=== PATIENT | male | born 1955 | race Caucasian/White ===

== ENCOUNTER → 2016-10-26 | Day surgery (SDC) | payer OTHER ==
[2016-10-06 10:18] VITALS: Ht 177.8 cm; Wt 80.9 kg
[~2016-10-26] VITALS: Ht 177.8 cm; Wt 80.9 kg
[~2016-10-26] MED LIST: 500ML BSS 0.3ML EPI 1:1000PF IRRIG ONE; ACETAMINOPHEN 325 MG TAB PO PRN; AMVISC PLUS 0.8ML SYRINGE INT OCU ONE; BSS FLUSH ONE; EpINEphrine INJ 1MG/ML AMP 1 MG/ML AMP ONE; LACTATED RINGER'S 1000ML 500 ML IV SCH; LIDOCAINE 3.5% OPH GEL PER APPLICATION CHARGE ONE; LIDOCAINE HCL 1% MPF 2 ML VIAL ONE; MIDAZOLAM HCL 1 MG/ML 2ML VIAL ONE; OCUCOAT 1 ML SOLN IO ONE; PHENYLEPHRINE HCL 10% OP SOLN PER DROP CHARGE OPL SCH; POVIDONE-IODINE OP SOLN 30 ML BTL ONE; PROPARACAINE 0.5% OP SOLN PER DROP CHARGE OPL SCH; TOBRAMYCIN/DEXAMETHASONE OPH OINT PER APPLN CHARGE ONE
[2016-10-26] MEDS: PHENYLEPHRINE HCL 2.5% OP SOLN PER DROP CHARGE OPL SCH ×2 (07:22→07:28)
[2016-10-26] MEDS: TROPICAMIDE 1% OP SOLN PER DROP CHARGE OPL SCH ×2 (07:23→07:29)
[2016-10-26] MEDS: CYCLOPENTOLATE HCL 1% OP SOLN PER DROP CHARGE OPL SCH ×2 (07:24→07:30)
[2016-10-26] MEDS: KETOROLAC 0.5% OP SOLN PER DROP CHARGE OPL SCH ×2 (07:25→07:31)
--- NOTE | 2016-10-26 07:25 | History & Physical Bridge - SC ---
H&P Re-Evaluation Bridge Note: I have examined the patient, reviewed the History & Physical and in the interval since the performance of the History & Physical I have noted the following changes of clinical significance: No changes noted
[2016-10-26] MEDS: GATIFLOXACIN OP SOLN PER DROP CHARGE OPL SCH ×2 (07:26→07:36)
--- NOTE | 2016-10-26 08:06 | Discharge Instructions-SurgCtr ---
Discharge Instructions Date of Service October 26, 2016. Visit Reason for Visit: Cataract Left Eye Discharge Discharge Diagnosis / Problem: cataract Discharge Goals Goal(s): Improve function Activity Recommendations Activity Limitations: per Instructions/Follow-up section Anesthesia . Post Anesthesia Instructions: If you have had General Anesthesia or IV Sedation: * Do not drive today. * Resume driving when surgeon permits. * Do not make important decisions or sign legal documents today. * Call surgeon for: 1. Temperature elevations greater than 101 degrees F. 2. Uncontrollable pain. 3. Excessive bleeding. 4. Persistent nausea and vomiting. 5. Medication intolerance (nausea, vomiting or rash). * For nausea and vomiting use only clear liquids such as: tea, soda, bouillon until nausea subsides, then gradually increase diet as tolerated. * If you have any concerns or questions, call your surgeon's office. If physician is unavailable and it is an emergency, call 911 or go to the nearest emergency room. . Instructions / Follow-Up Instructions / Follow-Up ACTIVITY RECOMMENDATIONS: * No strenuous lifting, jogging or running for 4 days * No swimming or yard work for 1 week. * Limited bending is permitted, such as putting on shoes. RETURN TO SCHOOL/WORK: No work until seen by physician in office. MEDICATIONS: Resume previous medications unless instructed otherwise by your surgeon. This includes eye drops for glaucoma. Zymaxid/Gatifloxacin (ross cap) - one drop every 2 hours until bedtime Nevanac/Ilevro/Prolensa/Ketorolac (unger cap) - one drop every 4 hours until bedtime Prednisolone (white/pink cap, SHAKE WELL) - one drop every 2 hours until bedtime Starting tomorrow - all 3 drops every 4 hours until seen in the office Optive drops - as needed for discomfort SPECIAL CARE INSTRUCTIONS: * Wear eyeshield when sleeping, for four nights. * You may wear your own glasses or sunglasses while awake. * You may read or watch TV * You may shower and wash your face, but be gentle around the eye and pat dry. * Blurry vision and mild irritation are normal. * Call office if pain is more severe or vision becomes dark at . FOLLOW UP VISIT: Follow-up with Dr Nicole tomorrow. Diet Recommendations Home Diet: resume previous diet Procedures Procedures Performed: Left Cataract Phacoemulsification With Intraocular Lens Implant Pending Studies Studies pending at discharge: no Medical Emergencies . Who to Call and When: Medical Emergencies: If at any time you feel your situation is an emergency, please call 911 immediately. . 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 . "Provider Documentation" section prepared by Norman Nicole. .
[2016-10-26 08:07] VITALS: TEMP 36.2
--- NOTE | 2016-10-26 08:07 | [facility] Operative Report ---
Operative Report Date of Service October 26, 2016. Operative Report 1. PREOPERATIVE DIAGNOSIS: Cataract of the left eye. 2. POSTOPERATIVE DIAGNOSIS: Same. 3. PROCEDURE: Phacoemulsification with intraocular lens implantation of the left eye. SURGEON: Dr. Norman Nicole. ANESTHESIA: Topical Lidocaine gel, 1% Non- Preserved intracameral Lidocaine, and monitored intravenous sedation. INDICATIONS FOR THE PROCEDURE: The patient is a 61 - year-old male with a history of cataract of the left eye causing significant visual impairment. The details of the proposed procedure were explained to the patient who asked appropriate questions and following discussion of all risks, benefits and alternatives agreed to have the procedure done. 4. OPERATION AND FINDINGS: DESCRIPTION OF PROCEDURE: After informed consent was obtained, the patient was brought to the Operating Room at the [facility]. The patient was placed in a supine position and then the left eye was prepped and draped in the usual sterile fashion for intraocular surgery. A drop of topical Lidocaine gel was placed in the operative eye. A wire lid speculum was then placed in the fornices. A corneal paracentesis was then created temporally. The Non-Preserved Lidocaine was then instilled into the anterior chamber. The anterior chamber was then pressurized with viscoelastic. A 2.0 mm clear corneal incision was then created temporally. A cystotome was inserted into the anterior chamber and used to create a tear in the anterior lens capsule. This capsular tear was then used to create a small flap and the flap was dragged in a counterclockwise direction in order to create a continuous curvilinear capsulorrhexis. Hydrodissection was accomplished with balanced salt solution. Phacoemulsification of the lens nucleus was then performed in a standard [id number]-[id number] technique. The phaco time was 13 seconds with an average power of 7 %. The remaining cortical material was removed using irrigation aspiration. The capsular bag was then filled with viscoelastic. A [employer]ch [employer] Lomb MX60 +17.5 diopters lens was then loaded into the injector and injected into the capsular bag. The remaining viscoelastic was removed with the irrigation aspiration handpiece. The wound was hydrated and then checked and found to be watertight. The intraocular pressure was checked and found to be adequate. The wire lid speculum was removed and the patient's face was cleaned and dried. TobraDex ointment was placed in the inferior fornix. The patient was discharged to the Recovery Room having tolerated the procedure well. There were no complications. The patient will be seen tomorrow in the office for follow-up. I attest to the content of the Intraoperative Record and any orders documented therein. Any exceptions are noted below.
--- NOTE | 2016-10-26 08:17 | Anesthesia Progress Nt - [facility] ---
Anesthesia Post Op Note Date & Time October 26, 2016 at 08:17 Vital Signs Pain Intensity: 0 Vital Signs Past 12 Hours Date Time Temp Pulse Resp B/P Pulse Ox O2 Delivery O2 Flow Rate FiO2 10/26/16 08:07 36.2 56 16 120/77 99 Room Air 10/26/16 07:08 36.5 60 16 111/75 96 Room Air Notes Mental Status: alert / awake / arousable, participated in evaluation Pt Amnestic to Procedure: No (recall as expected) Nausea / Vomiting: adequately controlled Pain: adequately controlled Airway Patency, RR, SpO2: stable & adequate BP & HR: stable & adequate Hydration State: stable & adequate Anesthetic Complications: no major complications apparent Pt doing well.
[2016-10-26 08:36] VITALS: BP 112/68; PULSE 50; O2SAT 100
== END | disposition home or self-care (01) ==
LOC: X.SURG 06:47
PROVIDERS: ATTEND Ophthalmology
DX: H26.9 Unspecified cataract (principal); Z85.828 Personal history of other malignant neoplasm of skin

== ENCOUNTER → 2016-12-02 | Day surgery (SDC) | payer OTHER ==
[2016-11-17 14:56] VITALS: Ht 177.8 cm; Wt 80.9 kg
[2016-11-22 09:38] LABS: BASO % 0.5 %; BASO ABS # 0.02 K/uL (0-0.2); COMPLETE YES; EOS % 2.5 %; HEMATOCRIT 42.1 % (42-52); LYMPH % 24.3 %; LYMPH ABS # 1.06 K/uL (1.2-3.4); MEAN CELL VOLUME 93.8 fL (80-100); MEAN CORPUSCULAR HEMOGLOBIN 32.5 pg (25-34); MEAN CORPUSCULAR HGB CONC 34.7 g/dl (32-36); MEAN PLATELET VOLUME 11.1 fL (7.4-10.4); MONO % 10.1 %; NEUT % 62.6 %; PLATELET COUNT 142 K/uL (130-400); RED BLOOD COUNT 4.49 M/uL (4.7-6.1); WHITE BLOOD COUNT 4.37 K/uL (4.8-10.8)
[2016-11-22 10:27] LABS: BUN/CREATININE RATIO 17.8 (10-20); CALCIUM 8.9 mg/dl (8.5-10.1); CREATININE 0.98 mg/dl (0.60-1.40); POTASSIUM 4.8 mmol/L (3.5-5.1)
[~2016-12-02] VITALS: Ht 177.8 cm; Wt 80.9 kg
== END | disposition home or self-care (01) ==
LOC: EDSTATUS 08:15 → C.PAT 13:39
PROVIDERS: ATTEND Orthopaedic Surgery
DX: G56.01 Carpal tunnel syndrome, right upper limb (principal)

== ENCOUNTER → 2017-01-06 | Outpatient (CLI) | payer OTHER ==
[2017-01-06 12:14] LABS: HEMATOCRIT 42.6 % (42-52); MEAN CELL VOLUME 94.9 fL (80-100); MEAN CORPUSCULAR HEMOGLOBIN 32.5 pg (25-34); MEAN CORPUSCULAR HGB CONC 34.3 g/dl (32-36); MEAN PLATELET VOLUME 11.4 fL (7.4-10.4); PLATELET COUNT 156 K/uL (130-400); RED BLOOD COUNT 4.49 M/uL (4.7-6.1); WHITE BLOOD COUNT 4.45 K/uL (4.8-10.8)
[2017-01-06 12:47] LABS: ALT/SGPT 31 U/L (12-78); AST/SGOT 22 U/L (15-37); BLOOD UREA NITROGEN 16 mg/dl (7-18); CALCIUM 8.7 mg/dl (8.5-10.1); CARBON DIOXIDE 27 mmol/L (21-32); CHLORIDE 111 mmol/L (98-107); CHOLESTEROL 172 mg/dl (0-200); GLUCOSE 88 mg/dl (70-99); POTASSIUM 4.6 mmol/L (3.5-5.1); SODIUM 143 mmol/L (136-145); TRIGLYCERIDES 95 mg/dl (0-150); VERY LOW DENSITY LIPOPROT CALC 19 mg/dl
[2017-01-06 12:50] LABS: ALB/GLOB RATIO 1.2 (0.9-2); ALKALINE PHOSPHATASE 48 U/L (45-117); CHOLESTEROL/HDL RATIO 3.2; HDL CHOLESTEROL 54 mg/dl; LDL CHOLESTEROL CALCULATED 99 mg/dl
== END | disposition home or self-care (01) ==
LOC: C.LAB1850 11:26
PROVIDERS: ATTEND Nurse Practitioner Adult Health
DX: R17 Unspecified jaundice (principal); Z13.220 Encounter for screening for lipoid disorders

== ENCOUNTER → 2017-04-15 | Outpatient (CLI) | payer OTHER ==
--- NOTE | 2017-04-15 11:58 | DIAGNOSTIC IMAGING REPORT ---
R SHOULDER MIN 2 VIEWS ROUTINE HISTORY: 61 years-old Male M25.511 acute right shoulder pain with fall COMPARISON: Right shoulder radiographs 07/17/2014, CT chest 09/09/2012. TECHNIQUE: 3 views of the right shoulder FINDINGS: No acute fracture or dislocation. Mild acromioclavicular and mild to moderate glenohumeral osteoarthritis. No intra-articular loose body. Calcified hilar lymph nodes are compatible with prior granulomatous disease. IMPRESSION: 1. Degenerative changes of the right shoulder without acute fracture or dislocation. 2. Evidence of prior granulomatous disease. The above report was generated using voice recognition software. It may contain grammatical, syntax or spelling errors. Electronically signed by: Chance Sandhu M.D. 04/15/2017 11:57 AM Dictated Date/Time: 04/15/2017 11:56 AM
--- NOTE | 2017-04-15 12:00 | DIAGNOSTIC IMAGING REPORT ---
R KNEE 1 OR 2 VIEWS ROUTINE HISTORY: 61 years-old Male M25.561 acute right knee pain status post fall COMPARISON: None available TECHNIQUE: 2 views of the right knee FINDINGS: Mild tricompartmental osteoarthritis and small joint effusion. No acute fracture, dislocation or intra-articular loose body. Vascular calcifications are noted. There is mild soft tissue swelling about the knee. IMPRESSION: 1. Small joint effusion and mild soft tissue swelling without acute fracture or dislocation. 2. Mild tricompartmental osteoarthritis. The above report was generated using voice recognition software. It may contain grammatical, syntax or spelling errors. Electronically signed by: Chance Sandhu M.D. 04/15/2017 11:59 AM Dictated Date/Time: 04/15/2017 11:57 AM
[2017-04-15 13:43] LABS: ALT/SGPT 29 U/L (12-78); BLOOD UREA NITROGEN 19 mg/dl (7-18); BUN/CREATININE RATIO 20.5 (10-20); C-REACTIVE PROTEIN 0.39 mg/dl (0-0.29); CALCIUM 8.8 mg/dl (8.5-10.1); CARBON DIOXIDE 28 mmol/L (21-32); CHLORIDE 108 mmol/L (98-107); CREATININE 0.93 mg/dl (0.60-1.40); GLUCOSE 87 mg/dl (70-99); POTASSIUM 4.5 mmol/L (3.5-5.1); SODIUM 140 mmol/L (136-145); URIC ACID 6.3 mg/dl (2.6-7.2)
[2017-04-15 13:46] LABS: ALB/GLOB RATIO 1.1 (0.9-2); ALKALINE PHOSPHATASE 62 U/L (45-117); AST/SGOT 18 U/L (15-37)
[2017-04-15 14:10] LABS: LYME DISEASE AB IGG NEG (NEG)
[2017-04-15 14:14] LABS: LYME DISEASE AB IGM EQUIVOCAL (NEG)
[2017-04-21 08:41] LABS: 18KDIGG BAND NONREACTIVE (NONREACTIVE); 23KDIGG BAND NONREACTIVE (NONREACTIVE); 23KDIGM BAND REACTIVE (NONREACTIVE); 28KDIGG BAND NONREACTIVE (NONREACTIVE); 30KDIGG BAND NONREACTIVE (NONREACTIVE); 39KDIGG BAND NONREACTIVE (NONREACTIVE); 39KDIGM BAND NONREACTIVE (NONREACTIVE); 41KDIGG BAND NONREACTIVE (NONREACTIVE); 41KDIGM BAND REACTIVE (NONREACTIVE); 45KDIGG BAND NONREACTIVE (NONREACTIVE); 58KDIGG BAND NONREACTIVE (NONREACTIVE); 66KDIGG BAND NONREACTIVE (NONREACTIVE); 93KDIGG BAND NONREACTIVE (NONREACTIVE)
--- NOTE | 2017-04-22 12:03 | CODING QUERY MEDICAL NECESSITY ---
SUPPORTING DIAGNOSIS NEEDED A supporting diagnosis is required for the test/procedure performed on this patient in order for us to be reimbursed by the patient's insurance. Please provide a supporting diagnosis for the following test/procedure listed below next to the test name along with your signature. *If there is no additional diagnosis for this patient that would support the following test/procedure please document that below next to the test/procedure. Test(s)/Procedure(s) that require a supporting diagnosis: * VITAMIN D, 25-HYDROXY DIAGNOSIS: Provider Signature: Date: Thank you Lesley Christine [employer] Management Once completed, please kindly fax back to [phone] For questions please call [phone]
== END | disposition home or self-care (01) ==
LOC: C.RAD1850 11:27
PROVIDERS: ATTEND Nurse Practitioner Family
DX: M25.561 Pain in right knee (principal); M25.511 Pain in right shoulder

== ENCOUNTER 2017-11-07 13:58 | Inpatient (IN) | payer OTHER ==
[~2017-11-07] VITALS: Ht 177.8 cm; Wt 87.9 kg
[2017-11-07] MEDS ORDERED: THIAMINE HCL 100 MG/ML 2 ML VIAL IV STA (14:06)
[2017-11-07] MEDS: SODIUM CHLORIDE 0.9% 1000ML 1,000 ML IV SCH ×2 (14:06→19:43)
--- NOTE | 2017-11-07 14:15 | EMERGENCY ROOM VISIT NOTE ---
History Report prepared by Gricelda: Alex Rojas Under the Supervision of: Dr. Noah Tripp D.O. First contact with patient: 14:03 Chief Complaint: DIZZY Stated Complaint: DIZZY, CANT STAND UP History of Present Illness The patient is a 62 year old male who presents to the Emergency Room for sudden onset dizziness and disorientation that began 1 hour ago. 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 He then attempted to lift the customer's luggage and he felt unusually weak. He now describes his symptoms as "dizzy" and "disoriented." He denies any headache. The patient still feels "foggy" at this time, but denies any sensation of the room spinning. The patient does note take any medications daily, but adds that he has been being treated for Gout for the past 2 weeks. He adds that he drinks 4 beers per night, and had such last evening. He denies any chest pain or shortness of breath. Source of History: patient Onset: 1 hour ago Position: head Quality: other (Dizziness and disorientation) Timing: other (Suddne onset 1 hour ago) Associated Symptoms: + weakness, No headache, No chest pain, No SOB Review of Systems See HPI for pertinent positives & negatives. A total of 10 systems reviewed and were otherwise negative. Past Medical & Surgical Medical Problems: (1) Chronic alcohol abuse (2) Elevated bilirubin (3) Gout (4) Weakness Hx of Eye surgery. Family History Cancer Heart disease Hypertension Lung disease Social History Smoking Status: Never Smoker Alcohol Use: occasionally Housing Status: lives with family Current/Historical Medications Scheduled Ibuprofen (Advil), 800 MG PO PRN Scheduled PRN Fluorouracil (Topical) (Efudex), 1 APPLN TOP BID PRN for dermititis Allergies Coded Allergies: No Known Allergies (Unverified , 11/17/16) Physical Exam Vital Signs Date Time Temp Pulse Resp B/P (MAP) Pulse Ox O2 Delivery O2 Flow Rate FiO2 11/07/17 18:24 62 18 131/74 99 Room Air 11/07/17 17:36 63 21 137/81 97 Room Air 11/07/17 17:06 57 20 144/76 98 Room Air 11/07/17 16:36 63 22 156/80 96 Room Air 11/07/17 16:03 62 19 134/82 100 Room Air 11/07/17 15:30 72 15 143/74 98 Room Air 11/07/17 15:00 68 22 146/83 99 Room Air 11/07/17 14:43 62 16 137/82 99 Room Air 11/07/17 14:31 72 20 148/82 99 Room Air 11/07/17 14:09 74 11/07/17 14:07 Room Air 11/07/17 14:01 36.4 77 16 152/83 99 Room Air Physical Exam GENERAL: Patient is awake, alert, and in no acute distress. Patient is somewhat anxious appearing. EYES: The conjunctivae are clear. The pupils are round and reactive. EARS, NOSE, MOUTH AND THROAT: The nose is without any evidence of any deformity. Mucous membranes are moist tongue is midline NECK: The neck is nontender and supple. RESPIRATORY: Normal respiratory effort is noted there is no evidence of wheezing rhonchi or rales CARDIOVASCULAR: Regular rate and rhythm noted there no murmurs rubs or gallops normal S1 normal S2 GASTROINTESTINAL: The abdomen is soft. Bowel sounds are present in all quadrants. Abdomen is nontender MUSCULOSKELETAL/EXTREMITIES: There is no evidence of gross deformity full range of motion is noted in the hips and shoulders SKIN: There is no obvious evidence of any rash. There are no petechiae, pallor or cyanosis noted. NEUROLOGIC: Slight word finding noted, but otherwise is awake, alert, and oriented x 3. Strength was symmetric in both upper extremities. Able to hold each leg off of the bed for greater than 5 seconds. Patient has a slight facial droop involving the left corner of the mouth. This droop corrects on examination. Medical Decision & Procedures ER Provider Diagnostic Interpretation: Radiology results as stated below per my review and radiologist interpretation: CHEST ONE VIEW PORTABLE CLINICAL HISTORY: Stroke COMPARISON STUDY: Chest radiograph and chest CT September 09, 2012. FINDINGS: Incidental note is made of numerous calcified mediastinal and bilateral hilar lymph nodes. Cardiomediastinal silhouette is unremarkable. There are healed bilateral rib fractures. No pneumothorax or pleural effusion is noted. No consolidation or evidence for pulmonary edema. IMPRESSION: No acute cardiopulmonary findings. Electronically signed by: Ajith Roberts M.D. 11/07/2017 2:33 PM Dictated Date/Time: 11/07/2017 2:31 PM HEAD WITHOUT CONTRAST (CT) CLINICAL HISTORY: 62 years-old Male presenting with Stroke, dizziness, inability to stand. TECHNIQUE: Multidetector CT imaging of the head was performed without the use of intravenous contrast. IV contrast: None. A dose lowering technique was used consistent with the principles of ALARA (as low as reasonably achievable). COMPARISON: None. CT DOSE (mGy.cm): The estimated cumulative dose is 638.56 mGycm. FINDINGS: Manager Licensing topogram: Unremarkable. Ventricles and sulci normal in size. Brain parenchyma normal in appearance with preserved unger-white differentiation. No mass effect or midline shift. No hemorrhage or acute territorial infarct. No extra-axial fluid collection. Paranasal sinuses and mastoid air cells clear. Calvarium intact. IMPRESSION: 1. No acute intracranial abnormality. Electronically signed by: Alcides Corado M.D. 11/07/2017 2:16 PM Dictated Date/Time: 11/07/2017 2:14 PM Laboratory Results 11/07/17 14:20 Red Blood Count 4.33, Mean Corpuscular Volume 91.7, Mean Corpuscular Hemoglobin 31.9, Mean Corpuscular Hemoglobin Concent 34.8, Mean Platelet Volume 10.1, Neutrophils (%) (Auto) 64.0, Lymphocytes (%) (Auto) 24.8, Monocytes (%) (Auto) 9.4, Eosinophils (%) (Auto) 1.3, Basophils (%) (Auto) 0.3, Neutrophils # (Auto) 3.81, Lymphocytes # (Auto) 1.48, Monocytes # (Auto) 0.56, Eosinophils # (Auto) 0.08, Basophils # (Auto) 0.02 11/07/17 14:20 Test 11/07/17 14:20 11/07/17 14:27 11/07/17 14:28 11/07/17 16:15 White Blood Count 5.96 K/uL (4.8-10.8) Red Blood Count 4.33 M/uL (4.7-6.1) Hemoglobin 13.8 g/dL (14.0-18.0) Hematocrit 39.7 % (42-52) Mean Corpuscular Volume 91.7 fL (80-100) Mean Corpuscular Hemoglobin 31.9 pg (25-34) Mean Corpuscular Hemoglobin Concent 34.8 g/dl (32-36) Platelet Count 216 K/uL (130-400) Mean Platelet Volume 10.1 fL (7.4-10.4) Neutrophils (%) (Auto) 64.0 % Lymphocytes (%) (Auto) 24.8 % Monocytes (%) (Auto) 9.4 % Eosinophils (%) (Auto) 1.3 % Basophils (%) (Auto) 0.3 % Neutrophils # (Auto) 3.81 K/uL (1.4-6.5) Lymphocytes # (Auto) 1.48 K/uL (1.2-3.4) Monocytes # (Auto) 0.56 K/uL (0.11-0.59) Eosinophils # (Auto) 0.08 K/uL (0-0.5) Basophils # (Auto) 0.02 K/uL (0-0.2) RDW Standard Deviation 40.6 fL (36.4-46.3) RDW Coefficient of Variation 12.0 % (11.5-14.5) Immature Granulocyte % (Auto) 0.2 % Immature Granulocyte # (Auto) 0.01 K/uL (0.00-0.02) Prothrombin Time 10.0 SECONDS (9.0-12.0) Prothromb Time International Ratio 1.0 (0.9-1.1) Activated Partial Thromboplast Time 26.8 SECONDS (21.0-31.0) Partial Thromboplastin Ratio 1.0 Est Creatinine Clear Calc Drug Dose 80.8 ml/min Estimated GFR () 85.8 Estimated GFR (Non- 74.0 BUN/Creatinine Ratio 18.4 (10-20) Calcium Level 8.4 mg/dl (8.5-10.1) Magnesium Level 2.0 mg/dl (1.8-2.4) Total Bilirubin 0.2 mg/dl (0.2-1) Direct Bilirubin < 0.1 mg/dl (0-0.2) Aspartate Amino Transf (AST/SGOT) 17 U/L (15-37) Alanine Aminotransferase (ALT/SGPT) 31 U/L (12-78) Alkaline Phosphatase 70 U/L (45-117) Total Creatine Kinase 171 U/L (39-308) Creatine Kinase MB 2.7 ng/ml (0.5-3.6) Creatine Kinase MB Ratio 1.6 (0-3.0) Troponin I < 0.015 ng/ml (0-0.045) Total Protein 7.6 gm/dl (6.4-8.2) Albumin 3.5 gm/dl (3.4-5.0) Ethyl Alcohol mg/dL < 3.0 mg/dl (0-3) Bedside Hemoglobin 13.3 g/dl (14.0-18.0) Bedside Hematocrit 39 % (42-52) Bedside Sodium 144 mEq/L (135-144) Bedside Potassium 4.1 mEq/L (3.3-5.0) Bedside Chloride 105 mEq/L (101-112) Bedside Total CO2 26 mEq/l (24-31) Anion Gap 18.0 mmol/L (16-25) Bedside Blood Urea Nitrogen 22 mg/dl (7-18) Bedside Creatinine 1.1 mg/dl (0.6-1.3) Bedside Glucose (other) 96 mg/dl (70-99) Bedside Ionized Calcium (Emily) 1.16 mmol/l (1.12-1.32) Bedside Glucose 89 mg/dl (70-99) Urine Color YELLOW Urine Appearance CLEAR (CLEAR) Urine pH 5.5 (4.5-7.5) Urine Specific [place] 1.021 (1.000-1.030) Urine Protein NEG (NEG) Urine Glucose (UA) NEG (NEG) Urine Ketones NEG (NEG) Urine Occult Blood NEG (NEG) Urine Nitrite NEG (NEG) Urine Bilirubin NEG (NEG) Urine Urobilinogen NEG (NEG) Urine Leukocyte Esterase NEG (NEG) Urine Opiates Screen NEG (NEG) Urine Methadone, Qualitative NEG (NEG) Urine Barbiturates NEG (NEG) Urine Phencyclidine (PCP) Level NEG (NEG) Ur Amphetamine/Methamphetamine NEG (NEG) MDMA (Ecstasy) Screen NEG (NEG) Urine Benzodiazepines Screen NEG (NEG) Urine Cocaine Metabolite NEG (NEG) Urine Marijuana (THC) POS (NEG) Laboratory results per my review. Medications Administered Medications (Trade) Dose Ordered Sig/Francisco Route Start Time Stop Time Status Last Admin Dose Admin Sodium Chloride 1,000 ml @ 50 mls/hr Q20H IV 11/07/17 14:06 12/07/17 14:05 11/07/17 14:06 50 MLS/HR Thiamine HCl (Vitamin B-1 Inj) 100 mg NOW STAT IV 11/07/17 14:06 11/07/17 14:08 DC 11/07/17 15:05 100 MG Aspirin (Aspirin Chew) 324 mg NOW STAT PO 11/07/17 15:26 11/07/17 15:27 DC 11/07/17 15:37 324 MG Pantoprazole Sodium (Protonix Tab) 40 mg NOW STAT PO 11/07/17 15:26 11/07/17 15:27 DC 11/07/17 15:37 40 MG ECG Per My Interpretation Indication: altered mental status, weakness Rate (beats per minute): 66 Rhythm: normal sinus Findings: no ectopy, other (No acute ST-segment abnormality, ) Comparison ECG Date: 11/22/2016 Change: no significant change ED Course 1403: The patient was evaluated in room A1. A complete history and physical examination were performed. 1406: Ordered Thiamine HCl 100 mg IV, Sodium Chloride 1000 mL @ 50 mL/hr IV. 1515: I discussed the case with Dr. Canchola - Neurology. 1526: Ordered Pantoprazole 40 mg PO, Aspirin 324 mg PO. 1532: I discussed the patient with [facility] QING. She will evaluate the patient for further treatment. Medical Decision Differential diagnosis: Etiologies such as metabolic, infection, hypo/hyperglycemia, electrolyte abnormalities, cardiac sources, intracerebral event, toxicologic, neurologic, as well as others were entertained. Nursing notes reviewed. The patient is a 62-year-old male who presented to the emergency department through triage for evaluation of dizziness. The patient states that he was noticing that something was wrong while he was at work at approximately 1 PM. The patient states that he has never had similar symptoms in the past. When he was in triage the triage nurse notified me because she was concerned he may be having a stroke. The patient was having difficulty finding words and appeared to have a facial droop. The patient was placed in through A1. His NIH stroke score was 0-1 at that time. The patient continued to improve while he was in the emergency department but I consulted with the [place] stroke neurologist. He felt that the patient's symptoms could be waxing and waning. He felt this could represent a neurologic process which was in progress. For this reason I discussed the patient's condition with the on-call [facility]. They have agreed to evaluate the patient in the emergency department for further management and disposition. Medication Reconcilliation Current Medication List: was personally reviewed by me Blood Pressure Screening Patient's blood pressure: Elevated blood pressure Referred to hospitalist. Consults Time Called: 1527 Consulting Physician: Citlali Cruzist QING Returned Call: [phone] I discussed the patient with Citlali Jung PA-C. She will evaluate the patient for further treatment. Additional Consults: Time Called: 151 Consulted Physician: Dr. Sushant Mann Returned Call: [phone] Additional Comments: I discussed the case with Dr. Sushant Mann. Impression Primary Impression: Dizziness Additional Impressions: Dysarthria TIA (transient ischemic attack) Scribe Attestation The scribe's documentation has been prepared under my direction and personally reviewed by me in its entirety. I confirm that the note above accurately reflects all work, treatment, procedures, and medical decision making performed by me. Departure Information Dispostion Being Evaluated By Hospitalist Referrals Chapo Gaming III, CRNP (PCP) Patient Instructions My [facility] Problem Qualifiers Additional Impressions: TIA (transient ischemic attack) Transient cerebral ischemia type: unspecified Qualified Codes: G45.9 - Transient cerebral ischemic attack, unspecified
--- NOTE | 2017-11-07 14:34 | DIAGNOSTIC IMAGING REPORT ---
CHEST ONE VIEW PORTABLE CLINICAL HISTORY: Stroke COMPARISON STUDY: Chest radiograph and chest CT September 09, 2012. FINDINGS: Incidental note is made of numerous calcified mediastinal and bilateral hilar lymph nodes. Cardiomediastinal silhouette is unremarkable. There are healed bilateral rib fractures. No pneumothorax or pleural effusion is noted. No consolidation or evidence for pulmonary edema. IMPRESSION: No acute cardiopulmonary findings. Electronically signed by: Ajith Roberts M.D. 11/07/2017 2:33 PM Dictated Date/Time: 11/07/2017 2:31 PM
[2017-11-07 14:37] LABS: BASO % 0.3 %; BASO ABS # 0.02 K/uL (0-0.2); EOS % 1.3 %; EOS ABS # 0.08 K/uL (0-0.5); HEMATOCRIT 39.7 % (42-52); HEMOGLOBIN 13.8 g/dL (14.0-18.0); IG# 0.01 K/uL (0.00-0.02); LYMPH % 24.8 %; LYMPH ABS # 1.48 K/uL (1.2-3.4); MEAN CELL VOLUME 91.7 fL (80-100); MEAN CORPUSCULAR HEMOGLOBIN 31.9 pg (25-34); MEAN CORPUSCULAR HGB CONC 34.8 g/dl (32-36); MEAN PLATELET VOLUME 10.1 fL (7.4-10.4); MONO % 9.4 %; MONO ABS # 0.56 K/uL (0.11-0.59); NEUT ABS # 3.81 K/uL (1.4-6.5); PLATELET COUNT 216 K/uL (130-400); RED CELL DISTRIBUTION WIDTH SD 40.6 fL (36.4-46.3); WHITE BLOOD COUNT 5.96 K/uL (4.8-10.8)
[2017-11-07 14:41] LABS: ISTAT CREATININE 1.1 mg/dl (0.6-1.3); ISTAT IONIZED CALCIUM 1.16 mmol/l (1.12-1.32); ISTAT POTASSIUM 4.1 mEq/L (3.3-5.0)
[2017-11-07 14:45] LABS: PTT PATIENT 26.8 SECONDS (21.0-31.0)
[2017-11-07 15:02] LABS: BLOOD UREA NITROGEN 20 mg/dl (7-18); CALCIUM 8.4 mg/dl (8.5-10.1); CARBON DIOXIDE 25 mmol/L (21-32); CKMB 2.7 ng/ml (0.5-3.6); CREATININE 1.07 mg/dl (0.60-1.40); GLUCOSE 93 mg/dl (70-99); POTASSIUM 3.9 mmol/L (3.5-5.1); SODIUM 141 mmol/L (136-145)
[2017-11-07] MEDS ORDERED: PANTOprazole SOD 40 MG TAB PO STA (15:26)
[2017-11-07] MEDS ORDERED: ASPIRIN 81 MG CHEW PO STA (15:26)
[2017-11-07] MEDS ORDERED: OPTIRAY 320 IV PRN (15:30)
[2017-11-07] MEDS ORDERED: IBUP-1050 PO (15:44)
[2017-11-07] MEDS ORDERED: FLUO5CRE TOP (15:44)
--- NOTE | 2017-11-07 16:11 | DIAGNOSTIC IMAGING REPORT ---
HEAD ANGIO WITH CONTRAST HISTORY: 62 years-old Male presents with acute strokelike symptoms, dizziness and weakness COMPARISON: CTA neck of same day, CT head 11/07/2017 TECHNIQUE: CTA of the head is obtained following the intravenous administration of 119 mL Optiray 320 IV contrast. 3-D coronal and sagittal MIPS were obtained from the axial data set and were submitted for review. All measurements were obtained according to NASCET criteria. A dose lowering technique was used consistent with the principals of NICOLE. FINDINGS: The imaged bilateral internal carotid arteries are widely patent. There is minimal atherosclerotic plaquing noted involving the cavernous, clinoid and supraclinoid segments without significant stenosis. Bilateral ophthalmic branches appear normal. The middle and left anterior cerebral arteries appear patent and within normal limits. The right A1 segment is not well seen and is likely developmentally diminutive in size. The bilateral A2 segments appear to be unremarkable and patent. V4 segments of the vertebral arteries are patent and unremarkable. The basilar artery is within normal limits. origin of the right posterior cerebral artery. Bilateral posterior cerebral arteries appear to be widely patent. The cerebral venous sinuses are patent and unremarkable. Soft tissues and orbits are within normal limits. No skull fracture. Mastoid air cells are clear. Mild mucosal thickening of the maxillary sinuses with polypoid mucosal disease about the right maxillary sinus. IMPRESSION: 1. Right A1 segment is not visualized, likely developmentally diminutive in size with the left A1 segment and bilateral A2 segments widely patent. 2. Incidental note is made of origin of the right posterior cerebral artery. 3. No aneurysm or dissection identified. The above report was generated using voice recognition software. It may contain grammatical, syntax or spelling errors. Electronically signed by: Chance Sandhu M.D. 11/07/2017 4:10 PM Dictated Date/Time: 11/07/2017 4:04 PM
--- NOTE | 2017-11-07 16:14 | DIAGNOSTIC IMAGING REPORT ---
CT ANGIOGRAPHY OF THE NECK WITH CONTRAST CLINICAL HISTORY: Dizziness. Weakness. Stroke alert. COMPARISON STUDY: No previous studies for comparison. Technique: CT angiography of the carotid and vertebral arteries was obtained using [employer] 320 IV and 3D reconstruction on an independent workstation. NASCET criteria was utilized. A dose lowering technique was utilized adhering to the principles of ALARA. Findings: Please note that the CTA of the head will be reported separately. The left vertebral artery arises from the aortic arch. There is mild plaque at the origin of the right vertebral artery without significant stenosis. The bilateral vertebral arteries are patent. The right vertebral artery is dominant. There is mild plaque within the bilateral internal carotid arteries without significant stenosis. There is no dissection within the major vasculature of the neck. No cervical lymphadenopathy is noted. Incidental note is made of numerous calcified mediastinal lymph nodes. Lung apices are clear. No suspicious osseous lesions are present. No mucosal lesion is identified. IMPRESSION: No significant stenosis within the major vessels of the neck. No dissection. Electronically signed by: Ajith Roberts M.D. 11/07/2017 4:12 PM Dictated Date/Time: 11/07/2017 4:05 PM
[2017-11-07] MEDS ORDERED: POLYETHYLENE (MIRALAX) 17 GM PACK PO PRN (16:30)
[2017-11-07] MEDS ORDERED: ACETAMINOPHEN 325 MG TAB PO PRN (16:30)
[2017-11-07] MEDS ORDERED: MAGNESIUM HYDROXIDE SUSP 30 ML UDC PO PRN (16:30)
[2017-11-07] MEDS ORDERED: ONDANSETRON INJ 2 MG/ML 2 ML VIAL IV PRN (16:30)
[2017-11-07] MEDS ORDERED: PHARMACIST DISCHARGE MED REC CONSULT PRN (16:30)
[2017-11-07] MEDS ORDERED: LORAZEPAM 2 MG/ML 1 ML VIAL IV PRN (16:30)
--- NOTE | 2017-11-07 17:13 | History and Physical ---
History & Physical Date & Time of Service: November 07, 2017 at 16:15 Chief Complaint: Dizzy, Cant Stand Up Primary Care Physician: Chapo Gaming III, CRNP History of Present Illness Source: patient This is a 62 yo M with Hx of elevated bilirubin, chronic alcohol abuse, basal cell carcinoma, gout, who presents with weakness which began around 1 pm today. 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 Patient proceeded to drive 15 minutes with passengers, and notes worsening symptoms of dizziness. He denies any sort of visual deficits or changes, no motor weakness, no slurring speech. He continued to feel "not quite right" and then proceeded to come to the ER. The patient denies having any history of symptoms like this. He notes recently has been treating himself for a right great toe gout with 800 mg ibuprofen twice a day. He believes that his gout was exacerbated due to being on vacation recently and drinking 12 beers per day. Patient routinely drinks at least 4 beers daily as well as smokes marijuana several times per week. He denies taking any routine medications. He does follow with [facility] as an outpatient. Pt was called as a stroke upon presentation to the ER. CT head was negative. Labs are essentially unremarkable including initial troponin. Alcohol level negative. Past Medical/Surgical History Medical Problems: (1) Chronic alcohol abuse (2) Elevated bilirubin (3) Gout (4) Weakness Family History Cancer Heart disease Hypertension Lung disease Social History Smoking Status: Never Smoker Smokeless Tobacco Use: No Alcohol Use: heavy Drug Use: marijuana Marital Status: single Housing status: lives with family (brother) Occupational Status: employed Allergies Coded Allergies: No Known Allergies (Unverified , 11/17/16) Home Medications Scheduled Ibuprofen (Advil), 800 MG PO PRN Scheduled PRN Fluorouracil (Topical) (Efudex), 1 APPLN TOP BID PRN for dermititis Review of Systems Constitutional: No fever, sweats or chills Eyes: No diplopia, no worsening or blurred vision ENT: normal hearing, no trouble swallowing Respiratory: No cough, sputum, dyspnea at rest or on exertion Cardiovascular: No chest pain, tightness or palpitations Abdomen: No pain, nausea, vomiting, diarrhea or constipation Musculoskeletal: No joint pain, calf pain, swelling Neurologic: + dizziness, No weakness, numbness/tingling, or balance problems Psychiatric: No anxiety or depression Skin: No rash or itch Physical Exam Vital Signs Date Time Temp Pulse Resp B/P (MAP) Pulse Ox O2 Delivery O2 Flow Rate FiO2 11/07/17 16:03 62 19 134/82 100 Room Air 11/07/17 15:30 72 15 143/74 98 Room Air 11/07/17 15:00 68 22 146/83 99 Room Air 11/07/17 14:43 62 16 137/82 99 Room Air 11/07/17 14:31 72 20 148/82 99 Room Air 11/07/17 14:09 74 11/07/17 14:07 Room Air 11/07/17 14:01 36.4 77 16 152/83 99 Room Air General: awake, alert, no apparent distress Head: Normocephalic, atraumatic ENT: PERRL, EOMI, no pharyngeal exudate, mucous membranes moist Chest: Clear to auscultation, on room air, no adventitious breath sounds Cardiac: Regular rate and rhythm, no murmur, no JVD, normal peripheral pulses, good capillary refill Abdominal: NABS x 4 quadrants, soft, nontender to palpation, no rebound, guarding or tenderness Extremities: Normal inspection, no peripheral edema or erythema, calfs nontender to palpation. R great toe with mild erythema, mildly painful Psych: Normal mood and affect Neuro: AAO x 3, strength intact bilaterally and related 5/5, no motor deficits, speech is clear, no peripheral sensory deficits Diagnostics Laboratory Results Results Past 24 Hours Test 11/07/17 14:20 11/07/17 14:27 11/07/17 14:28 Range/Units White Blood Count 5.96 4.8-10.8 K/uL Red Blood Count 4.33 4.7-6.1 M/uL Hemoglobin 13.8 14.0-18.0 g/dL Hematocrit 39.7 42-52 % Mean Corpuscular Volume 91.7 80-100 fL Mean Corpuscular Hemoglobin 31.9 25-34 pg Mean Corpuscular Hemoglobin Concent 34.8 32-36 g/dl Platelet Count 216 130-400 K/uL Mean Platelet Volume 10.1 7.4-10.4 fL Neutrophils (%) (Auto) 64.0 % Lymphocytes (%) (Auto) 24.8 % Monocytes (%) (Auto) 9.4 % Eosinophils (%) (Auto) 1.3 % Basophils (%) (Auto) 0.3 % Neutrophils # (Auto) 3.81 1.4-6.5 K/uL Lymphocytes # (Auto) 1.48 1.2-3.4 K/uL Monocytes # (Auto) 0.56 0.11-0.59 K/uL Eosinophils # (Auto) 0.08 0-0.5 K/uL Basophils # (Auto) 0.02 0-0.2 K/uL RDW Standard Deviation 40.6 36.4-46.3 fL RDW Coefficient of Variation 12.0 11.5-14.5 % Immature Granulocyte % (Auto) 0.2 % Immature Granulocyte # (Auto) 0.01 0.00-0.02 K/uL Prothrombin Time 10.0 9.0-12.0 SECONDS Prothromb Time International Ratio 1.0 0.9-1.1 Activated Partial Thromboplast Time 26.8 21.0-31.0 SECONDS Partial Thromboplastin Ratio 1.0 Sodium Level 141 136-145 mmol/L Potassium Level 3.9 3.5-5.1 mmol/L Chloride Level 109 98-107 mmol/L Carbon Dioxide Level 25 21-32 mmol/L Anion Gap 7.0 18.0 16-25 mmol/L Blood Urea Nitrogen 20 7-18 mg/dl Creatinine 1.07 0.60-1.40 mg/dl Est Creatinine Clear Calc Drug Dose 80.8 ml/min Estimated GFR () 85.8 Estimated GFR (Non- 74.0 BUN/Creatinine Ratio 18.4 10-20 Random Glucose 93 70-99 mg/dl Calcium Level 8.4 8.5-10.1 mg/dl Magnesium Level 2.0 1.8-2.4 mg/dl Total Creatine Kinase 171 39-308 U/L Creatine Kinase MB 2.7 0.5-3.6 ng/ml Creatine Kinase MB Ratio 1.6 0-3.0 Troponin I < 0.015 0-0.045 ng/ml Ethyl Alcohol mg/dL < 3.0 0-3 mg/dl Bedside Hemoglobin 13.3 14.0-18.0 g/dl Bedside Hematocrit 39 42-52 % Bedside Sodium 144 135-144 mEq/L Bedside Potassium 4.1 3.3-5.0 mEq/L Bedside Chloride 105 101-112 mEq/L Bedside Total CO2 26 24-31 mEq/l Bedside Blood Urea Nitrogen 22 7-18 mg/dl Bedside Creatinine 1.1 0.6-1.3 mg/dl Bedside Glucose (other) 96 70-99 mg/dl Bedside Ionized Calcium (Emily) 1.16 1.12-1.32 mmol/l Bedside Glucose 89 70-99 mg/dl Diagnostic Radiology CHEST ONE VIEW PORTABLE CLINICAL HISTORY: Stroke COMPARISON STUDY: Chest radiograph and chest CT September 09, 2012. FINDINGS: Incidental note is made of numerous calcified mediastinal and bilateral hilar lymph nodes. Cardiomediastinal silhouette is unremarkable. There are healed bilateral rib fractures. No pneumothorax or pleural effusion is noted. No consolidation or evidence for pulmonary edema. IMPRESSION: No acute cardiopulmonary findings. Electronically signed by: Ajith Roberts M.D. 11/07/2017 2:33 PM Dictated Date/Time: 11/07/2017 2:31 PM The status of this report is Signed. HEAD WITHOUT CONTRAST (CT) CLINICAL HISTORY: 62 years-old Male presenting with Stroke, dizziness, inability to stand. TECHNIQUE: Multidetector CT imaging of the head was performed without the use of intravenous contrast. IV contrast: None. A dose lowering technique was used consistent with the principles of ALARA (as low as reasonably achievable). COMPARISON: None. CT DOSE (mGy.cm): The estimated cumulative dose is 638.56 mGycm. FINDINGS: Hris Analyst topogram: Unremarkable. Ventricles and sulci normal in size. Brain parenchyma normal in appearance with preserved unger-white differentiation. No mass effect or midline shift. No hemorrhage or acute territorial infarct. No extra-axial fluid collection. Paranasal sinuses and mastoid air cells clear. Calvarium intact. IMPRESSION: 1. No acute intracranial abnormality. Electronically signed by: Alcides Corado M.D. 11/07/2017 2:16 PM Dictated Date/Time: 11/07/2017 2:14 PM The status of this report is Signed. EKG Normal sinus rhythm Normal ECG When compared with ECG of 22-NOV-2016 08:52, No significant change was found Vent. rate 66 BPM AL interval 148 ms QRS duration 78 ms QT/QTc 420/440 ms P-R-T axes 37 -22 25 Impression Assessment and Plan This is a 62 yo M with Hx of elevated bilirubin, chronic alcohol abuse, basal cell carcinoma, gout, who presents with weakness which began around 1 pm today. 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 Patient proceeded to drive 15 minutes with passengers, and notes worsening symptoms of dizziness. Possible TIA/ Stroke R/o - Admit to tele - neuro consulted, stroke protocol - Dr. Lyles, pt is out of the window for TPA. - CT imaging negative for possible acute infarct. CTA head/neck in process. - Low threshold for MRI if sx worsen, change. - Neuro checks - Check Echo for possible underlying etiology of dizziness- trend troponins, initial was unremarkable - Follow lipid panel, a1c with am labs - BP acceptable currently, can have permissive hypertension for now - Pt does not take any home medications : Start baby asa daily, statin pending lipid panel - Labs are essentially wnl Chronic Alcohol Abuse - Check thiamine, folic acid levels with am labs - will start on supplementation - Ativan prn for withdrawal if necessary, last drink was yesterday - Cessation encouraged especially in the setting of gout flare - INR = 1.0 - etoh negative Marijuana Use - Admits to last use being 2 days ago. Will check tox screen for other drug use. Gout - Check uric acid level - has been using 800 mg ibuprofen BID at home x 1 week. Hold for now as pt reports sx are essentially resolved. - Pt was counselled that high dose nsaids increase risk of GI bleed with his heavy alcohol consumption. Hx elevated bilirubin - Follow LFTs with am labs, PCP has been following DVT ppx: Teds, scds, no chemical ppx at this time CODE: FULL CODE Dispo: From home, lives with brother, PT/OT to eval. Resuscitation Status VTE Prophylaxis Will order VTE Prophylaxis: Yes History Patient seen and examined, chart reviewed, case discussed with TUAN Lara and I agree with her assessment and plan as documented above. 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 Patient denies CP/ Palpitations/syncope. Denies numbness/tingling or weakness. On physical exam he is afebrile, hemodynamically stable. General: NAD, resting comfortably. Skin: warm, dry, intact, no rashes or lesions. HEENT: Unremarkable. Heart +S1/S2, regular, no m/r/g/ectopy, Lungs CTA, no rales/ rhonchi or wheezes. Abdomen benign. Extremities without edema. Neurologically intact. Labs and images reviewed. Patient with mild normochromic/normocytic anemia, elevated BUN. Assessment: 62yo male with dizziness/lightheadedness. No neurologic deficit. Plan: Telemetry to monitor for arrhythmia, monitor labs and VS. TIA workup with Neuro consult. Low threshold for MRI. Remainder of plan as above.
[2017-11-07] MEDS ORDERED: LORAZEPAM INJ 0.5 MG in SYRINGE 0.75 ML IV PRN (17:15)
[2017-11-07 17:43] LABS: ALBUMIN 3.5 gm/dl (3.4-5.0); ALKALINE PHOSPHATASE 70 U/L (45-117); ALT/SGPT 31 U/L (12-78); AST/SGOT 17 U/L (15-37); TOTAL PROTEIN 7.6 gm/dl (6.4-8.2)
[2017-11-07 19:18] VITALS: O2SAT 99; Ht 177.8 cm; Wt 87.9 kg
[2017-11-07 19:54] VITALS: BP 130/78; PULSE 58; TEMP 36.7; O2SAT 97
[2017-11-07 21:15] VITALS: O2SAT 94
[2017-11-07 23:35] VITALS: BP 123/69; PULSE 51; TEMP 36.4; O2SAT 96
[2017-11-08] VITALS (10 sets, daily range): BP systolic 113–136; BP diastolic 70–82; PULSE 55–64; TEMP 36.6–36.8; O2SAT 94–96
[2017-11-08 05:45] LABS: HEMOGLOBIN A1C 5.4 % (4.5-5.6)
[2017-11-08 06:29] LABS: BASO % 0.4 %; BASO ABS # 0.02 K/uL (0-0.2); EOS % 1.5 %; EOS ABS # 0.07 K/uL (0-0.5); HEMATOCRIT 37.1 % (42-52); HEMOGLOBIN 12.9 g/dL (14.0-18.0); IG# 0.01 K/uL (0.00-0.02); LYMPH % 20.3 %; LYMPH ABS # 0.97 K/uL (1.2-3.4); MEAN CELL VOLUME 91.4 fL (80-100); MEAN CORPUSCULAR HEMOGLOBIN 31.8 pg (25-34); MEAN CORPUSCULAR HGB CONC 34.8 g/dl (32-36); MONO % 7.7 %; MONO ABS # 0.37 K/uL (0.11-0.59); NEUT % 69.9 %; NEUT ABS # 3.35 K/uL (1.4-6.5); PLATELET COUNT 185 K/uL (130-400); RED CELL DISTRIBUTION WIDTH SD 40.2 fL (36.4-46.3); WHITE BLOOD COUNT 4.79 K/uL (4.8-10.8)
[2017-11-08 07:09] LABS: BLOOD UREA NITROGEN 17 mg/dl (7-18); CALCIUM 8.1 mg/dl (8.5-10.1); CARBON DIOXIDE 26 mmol/L (21-32); CHOLESTEROL 130 mg/dl (0-200); CREATININE 0.95 mg/dl (0.60-1.40); GLUCOSE 84 mg/dl (70-99); LDL CHOLESTEROL CALCULATED 73 mg/dl; POTASSIUM 4.1 mmol/L (3.5-5.1); SODIUM 141 mmol/L (136-145); URIC ACID 6.3 mg/dl (2.6-7.2)
[2017-11-08] MEDS: SODIUM CHLORIDE 0.9% 1000ML 1,000 ML IV SCH ×3 (08:00→20:56)
[2017-11-08] MEDS: CEROVITE ADV FORMULA TAB PO SCH (08:02)
[2017-11-08] MEDS: THIAMINE HCL 100 MG TAB PO SCH (08:02)
[2017-11-08] MEDS: FoLIC ACID TAB 400 MCG TAB PO SCH (08:02)
[2017-11-08] MEDS ORDERED: ASPIRIN 81 MG ECTAB PO SCH ×2 (09:00)
--- NOTE | 2017-11-08 09:37 | Neurology Consultation ---
Neurology Consultation Date of Consultation: November 08, 2017. Attending Physician: Amy Cooper D.O. Primary Care Physician: Chapo Gaming III, CRNP Reason for Consultation: Patient is a 62-year-old, who was asked to see the request of Dr. Cooper, for neurologic consultation regarding acute onset dizziness, question stroke History of Present Illness Source: patient, caregiver, hospital records This patient has no history of heart disease, hypertension, diabetes, asthma, ulcer, or previous stroke. He does have a longstanding history of gout and intermittently takes ibuprofen which helps. That is his only medication. 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 He got out of his car to help a customer put luggage in and drove her to the airport. When he got out of the car to help he noted balance issues and more woozy dizzy feelings. He was not lightheaded like he was going to fade and he did have a true vertigo. He had no specific weakness or numbness but felt weak all over. He had no speech or mentation problems but he did feels if he was a little foggy at times. After Re drop the customer off at the airport, he felt dizzy enough that he took himself to the emergency room. The patient had no nausea or vomiting. He arrived November 07 at 1401 hours, with a temperature 36.4, pulse 77 regular, respiratory rate 16, blood pressure 1 to 2/83, and O2 saturation 99%. He was described as being a little bit anxious and had some slight word-finding problems and a slight left facial droop. Chest x-ray was unremarkable CT scan of the head was unremarkable CT angiography of the neck was unremarkable CT angiography of the head showed a nonvisualized right A1 segment. In addition there was a origin to the right posterior cerebral artery. There were no significant stenoses or aneurysms. Laboratory studies revealed mild anemia on CBC. Hemoglobin A1c was 5.4, fasting cholesterol was 130 and fasting triglycerides 113. Urinalysis was unremarkable. Drug screen was positive for marijuana. Alcohol was 0. I reviewed all films and reports as well as laboratory reports. This morning, he feels a little more dizzy and off balance with his walking. He denies lightheadedness, headaches, speech problems, or confusion/thought issues. The he has no weakness or numbness of the limbs and no swallowing problems. He feels a little anxious but not overtly so and he is not diaphoretic. Patient denies hearing loss, tinnitus, or ear pain. Blood pressure has been normal and pulse has been in the 50s. He has no cardiac dysrhythmia on monitoring Past Medical/Surgical History Medical Problems: (1) Dizziness Status: Acute (2) Dysarthria Status: Acute (3) TIA (transient ischemic attack) Status: Acute Gout History of basal cell carcinoma behind the left ear and chest New onset dizziness/vertiginous feelings History of significant alcohol use. He is post bilateral cataract repair as his only surgery Family History Mother age 75 of metastatic ovarian cancer Father age 69 of an [place] Social History The patient never used tobacco products or smoke. The patient says that on days he works, he has 4 beers each evening. On non work days he will have 10-12 beers a day. He also uses marijuana. 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 Smoking Status: Never smoker Smokeless Tobacco Use: No Alcohol Use: heavy Drug Use: marijuana Marital Status: single Housing Status: lives with family Occupation Status: employed Allergies Coded Allergies: No Known Allergies (Unverified , 11/17/16) Current Inpatient Medications Current Inpatient Medications Medications (Trade) Dose Ordered Sig/[place] Route Start Time Stop Time Status Last Admin Dose Admin Sodium Chloride 1,000 ml @ 50 mls/hr Q20H IV 11/07/17 14:06 12/07/17 14:05 11/07/17 14:06 50 MLS/HR Ioversol (Optiray 320) 100 ml UD PRN IV 11/07/17 15:30 11/11/17 15:29 Aspirin (Ecotrin Tab) 81 mg QAM PO 11/08/17 09:00 12/08/17 08:59 11/08/17 08:02 81 MG Miscellaneous Information (Pharmacist Discharge Med Rec Consult) 1 ea UD PRN N/A 11/07/17 16:30 12/07/17 16:29 Sodium Chloride 1,000 ml @ 80 mls/hr [id number] IV 11/07/17 19:30 12/07/17 19:29 11/07/17 19:43 80 MLS/HR Acetaminophen (Tylenol Tab) 650 mg Q4H PRN PO 11/07/17 16:30 12/07/17 16:29 Magnesium Hydroxide (Milk Of Magnesia Susp) 30 ml Q12H PRN PO 11/07/17 16:30 12/07/17 16:29 Ondansetron HCl (Zofran Inj) 4 mg Q6H PRN IV 11/07/17 16:30 12/07/17 16:29 Polyethylene (Miralax Powder Packet) 17 gm DAILY PRN PO 11/07/17 16:30 12/07/17 16:29 Thiamine HCl (Vitamin B-1 Tab) 100 mg QAM PO 11/08/17 09:00 12/08/17 08:59 11/08/17 08:02 100 MG Folic Acid (Folvite Tab) 400 mcg QAM PO 11/08/17 09:00 12/08/17 08:59 11/08/17 08:02 400 MCG Multivitamins/ Minerals (Multivitamin W/ Minerals Tab) 1 tab QAM PO 11/08/17 09:00 12/08/17 08:59 11/08/17 08:02 1 TAB Lorazepam (Ativan Inj) 0.5 mg Q2HWA PRN IV 11/07/17 16:30 12/07/17 16:29 Lorazepam 0.5 mg/ Syringe 1 ml @ 1 mls/min Q2HWA PRN IV 11/07/17 17:15 12/07/17 17:14 Review of Systems Constitutional: + fatigue, No weakness Eyes: No worsening of vision, No diplopia ENT: No hearing loss, No tinnitus, No trouble swallowing Respiratory: No cough, No shortness of breath Cardiovascular: No chest pain, No palpitations Abdomen: No pain, No nausea Musculoskeletal: No joint pain, No muscle pain Genitourinary - Male: No dysuria, No urinary incontinence Neurologic: + balance problems, No memory loss, No weakness, No numbness/ tingling, No vertigo Psychiatric: No depression symptoms, No anxiety Endocrine: No fatigue Hematologic / Lymphatic: No abnormal bleeding/bruising Integumentary: No rash Allergic / Immunologic: No hives Physical Exam Vital Signs (Past 24 Hrs): Date Time Temp Pulse Resp B/P (MAP) Pulse Ox O2 Delivery O2 Flow Rate FiO2 11/08/17 07:10 36.8 55 18 114/74 (87) 96 11/08/17 04:20 36.7 56 16 113/70 (84) 96 Room Air 11/08/17 04:00 Room Air 11/08/17 00:00 Room Air 11/07/17 23:35 36.4 51 16 123/69 (87) 96 Room Air 11/07/17 21:15 94 Room Air 11/07/17 19:54 36.7 58 18 130/78 (95) 97 Room Air 11/07/17 19:18 99 Room Air 11/07/17 18:24 62 18 131/74 99 Room Air 11/07/17 17:36 63 21 137/81 97 Room Air 11/07/17 17:06 57 20 144/76 98 Room Air 11/07/17 16:36 63 22 156/80 96 Room Air 11/07/17 16:03 62 19 134/82 100 Room Air 11/07/17 15:30 72 15 143/74 98 Room Air 11/07/17 15:00 68 22 146/83 99 Room Air 11/07/17 14:43 62 16 137/82 99 Room Air 11/07/17 14:31 72 20 148/82 99 Room Air 11/07/17 14:09 74 11/07/17 14:07 Room Air 11/07/17 14:01 36.4 77 16 152/83 99 Room Air Patient is right-handed. The patient is awake and alert. Speech is normal without aphasia or dysarthria. Mentation and thought processes are intact with full orientation and normal fund of knowledge. Mood and affect are normal and appropriate. Appearance and grooming are normal. Long and short-term memory are intact. The discs are sharp with positive venous pulsations. Pupils are 4mm bilaterally and reactive to light. Extraocular eye muscles are intact without nystagmus. Visual acuity and visual ivy seem normal grossly to confrontation. There are no deficits to sensation of the face bilaterally. Corneal reflexes are positive bilaterally. Facial strength and symmetry is normal bilaterally. Hearing seems intact grossly to voice and finger rub. Palate moves well without asymmetry. There is normal sternocleidomastoid and trapezius strength bilaterally. Tongue is midline with good strength bilaterally. Neck is with full range of motion without discomfort. There are no cervical bruits. There are no cranial or ocular bruits. Heart is without murmur. Cervical, thoracic, and lumbar spine are nontender to palpation. Gait is slightly wide-based and cautious. Stance with eyes open is reasonable but sways some and feels dizzy. With outstretched arms there is no drift. There are no resting, postural, or action tremors. There is no ataxia with [id number] testing. There is good facility in the hands. There are no abnormal involuntary movements noted. Motor strength is 5/5 diffusely in the arms bilaterally including deltoids, biceps, brachioradialis, wrist flexors and extensors, coder operator, and intrinsic hand muscles. Motor strength is 5/5 diffusely in the legs bilaterally including hip flexors, quadriceps, hamstring, gastrocnemius, tibialis anterior, tibialis posterior, and peroneii muscles bilaterally. Toe extensors are normal and there is good bulk in the extensor digitorum brevis muscle bilaterally. The limbs have good tone without rigidity or spasticity, and there is no atrophy noted. Muscle bulk is normal, there is no tenderness, no myotonia noted to percussion, and no fasciculations seen. Sensory examination is intact to pin and touch throughout all four limbs. Reflexes are 1/4 in the biceps, triceps, brachioradialis, quadriceps, and Achilles tendons bilaterally. Toes are downgoing with plantar stimulation bilaterally. Peripheral pulses are present and of normal quality distally in all four limbs. There is no peripheral edema noted. Laboratory Results Past 24 Hours: 11/08/17 06:08 Red Blood Count 4.06, Mean Corpuscular Volume 91.4, Mean Corpuscular Hemoglobin 31.8, Mean Corpuscular Hemoglobin Concent 34.8, Mean Platelet Volume 10.0, Neutrophils (%) (Auto) 69.9, Lymphocytes (%) (Auto) 20.3, Monocytes (%) (Auto) 7.7, Eosinophils (%) (Auto) 1.5, Basophils (%) (Auto) 0.4, Neutrophils # (Auto) 3.35, Lymphocytes # (Auto) 0.97, Monocytes # (Auto) 0.37, Eosinophils # (Auto) 0.07, Basophils # (Auto) 0.02 11/08/17 06:08 Test 5/21/18 14:20 11/07/17 14:24 11/07/17 14:27 11/07/17 16:15 Prothrombin Time 10.0 SECONDS (9.0-12.0) Prothromb Time International Ratio 1.0 (0.9-1.1) Activated Partial Thromboplast Time 26.8 SECONDS (21.0-31.0) Partial Thromboplastin Ratio 1.0 Estimated Average Glucose 108 mg/dl Hemoglobin A1c 5.4 % (4.5-5.6) Magnesium Level 2.0 mg/dl (1.8-2.4) Total Bilirubin 0.2 mg/dl (0.2-1) Direct Bilirubin < 0.1 mg/dl (0-0.2) Aspartate Amino Transf (AST/SGOT) 17 U/L (15-37) Alanine Aminotransferase (ALT/SGPT) 31 U/L (12-78) Alkaline Phosphatase 70 U/L (45-117) Total Creatine Kinase 171 U/L (39-308) Creatine Kinase MB 2.7 ng/ml (0.5-3.6) Creatine Kinase MB Ratio 1.6 (0-3.0) Total Protein 7.6 gm/dl (6.4-8.2) Albumin 3.5 gm/dl (3.4-5.0) Ethyl Alcohol mg/dL < 3.0 mg/dl (0-3) Hepatitis C Antibody Screen NEG (NEG) Bedside Prothrombin Time INR 1.0 (0.9-1.1) Bedside Hemoglobin 13.3 g/dl (14.0-18.0) Bedside Hematocrit 39 % (42-52) Bedside Sodium 144 mEq/L (135-144) Bedside Potassium 4.1 mEq/L (3.3-5.0) Bedside Chloride 105 mEq/L (101-112) Bedside Total CO2 26 mEq/l (24-31) Bedside Blood Urea Nitrogen 22 mg/dl (7-18) Bedside Creatinine 1.1 mg/dl (0.6-1.3) Bedside Glucose (other) 96 mg/dl (70-99) Bedside Ionized Calcium (Emily) 1.16 mmol/l (1.12-1.32) Urine Color YELLOW Urine Appearance CLEAR (CLEAR) Urine pH 5.5 (4.5-7.5) Urine Specific Maxwell 1.021 (1.000-1.030) Urine Protein NEG (NEG) Urine Glucose (UA) NEG (NEG) Urine Ketones NEG (NEG) Urine Occult Blood NEG (NEG) Urine Nitrite NEG (NEG) Urine Bilirubin NEG (NEG) Urine Urobilinogen NEG (NEG) Urine Leukocyte Esterase NEG (NEG) Urine Opiates Screen NEG (NEG) Urine Methadone, Qualitative NEG (NEG) Urine Barbiturates NEG (NEG) Urine Phencyclidine (PCP) Level NEG (NEG) Ur Amphetamine/Methamphetamine NEG (NEG) MDMA (Ecstasy) Screen NEG (NEG) Urine Benzodiazepines Screen NEG (NEG) Urine Cocaine Metabolite NEG (NEG) Urine Marijuana (THC) POS (NEG) Test 11/07/17 20:37 11/08/17 06:08 Bedside Glucose 81 mg/dl (70-99) White Blood Count 4.79 K/uL (4.8-10.8) Red Blood Count 4.06 M/uL (4.7-6.1) Hemoglobin 12.9 g/dL (14.0-18.0) Hematocrit 37.1 % (42-52) Mean Corpuscular Volume 91.4 fL (80-100) Mean Corpuscular Hemoglobin 31.8 pg (25-34) Mean Corpuscular Hemoglobin Concent 34.8 g/dl (32-36) Platelet Count 185 K/uL (130-400) Mean Platelet Volume 10.0 fL (7.4-10.4) Neutrophils (%) (Auto) 69.9 % Lymphocytes (%) (Auto) 20.3 % Monocytes (%) (Auto) 7.7 % Eosinophils (%) (Auto) 1.5 % Basophils (%) (Auto) 0.4 % Neutrophils # (Auto) 3.35 K/uL (1.4-6.5) Lymphocytes # (Auto) 0.97 K/uL (1.2-3.4) Monocytes # (Auto) 0.37 K/uL (0.11-0.59) Eosinophils # (Auto) 0.07 K/uL (0-0.5) Basophils # (Auto) 0.02 K/uL (0-0.2) RDW Standard Deviation 40.2 fL (36.4-46.3) RDW Coefficient of Variation 12.0 % (11.5-14.5) Immature Granulocyte % (Auto) 0.2 % Immature Granulocyte # (Auto) 0.01 K/uL (0.00-0.02) Anion Gap 6.0 mmol/L (3-11) Est Creatinine Clear Calc Drug Dose 90.2 ml/min Estimated GFR () 99.0 Estimated GFR (Non- 85.4 BUN/Creatinine Ratio 17.5 (10-20) Uric Acid 6.3 mg/dl (2.6-7.2) Calcium Level 8.1 mg/dl (8.5-10.1) Troponin I < 0.015 ng/ml (0-0.045) Triglycerides Level 118 mg/dl (0-150) Cholesterol Level 130 mg/dl (0-200) HDL Cholesterol 33 mg/dl LDL Cholesterol, Calculated 73 mg/dl VLDL Cholesterol, Calculated 24 mg/dl Cholesterol/HDL Ratio 3.9 Folate 11.58 ng/mL (>5.38) Impression 1. Acute onset dizziness, more consistent with a vertiginous like feeling then a lightheadedness. On examination there are no focal neurologic findings, meningeal signs, or encephalopathy. This is likely an inner ear problem although a small stroke cannot entirely be excluded. He has no overt risk factors for stroke including no history of hypertension, diabetes, cigarette smoking, or dyslipidemia. 2. History of longstanding and heavy alcohol use. I am concerned about alcohol withdrawal in this patient. Plan 1. MRI of the brain with without contrast to evaluate for stroke and other issues. Attention to the inner ears. 2. Physical and occupational therapy. 3. Watch for alcohol withdrawal and treat him with the appropriate hydration and vitamins for this condition. 4. Unless the MRI shows something different, I see no reason for initiating any medication including antiplatelet therapy at this time. There is no true vertigo saw I am not sure if Antivert would be helpful anyway. I have spoken with Dr. Anna regarding this case including differential diagnosis and treatment options.
--- NOTE | 2017-11-08 11:41 | DIAGNOSTIC IMAGING REPORT ---
MRI OF THE BRAIN WITHOUT IV CONTRAST CLINICAL HISTORY: Transient ischemic attack. Weakness. COMPARISON STUDY: CT of the brain dated 11/07/2017. TECHNIQUE: MRI of the brain was performed utilizing various T1 and T2-weighted sequences in the axial, sagittal, and coronal planes. IV contrast was not administered for this examination. FINDINGS: Brain parenchyma: There is minimal subcortical and periventricular microangiopathic disease. There is no hemorrhage or mass effect. There is no restricted diffusion to suggest acute ischemia. Peña-white matter differentiation is preserved. No extra-axial fluid collection is seen. The cerebellar tonsils are normal in configuration. Ventricles, sulci, and cisterns: Normal in configuration. Pituitary and sella: Unremarkable. Intracranial vasculature: Normal flow voids are maintained at the skull base. Orbits: There has been remote fracture of the left lamina papyracea. The bony orbits are otherwise grossly intact. Orbital contents are normal in appearance noting bilateral ocular lens implants. Sinuses and mastoids: A 13 mm retention cyst is seen in the right maxillary antrum. Trace mucosal thickening is noted in the maxillary sinuses. The remaining paranasal sinuses and the mastoid air cells are clear. Calvarium: Unremarkable. Cervical cord: Partially visualized cervical spinal cord is normal in morphology and signal intensity. IMPRESSION: No acute intracranial abnormality. Electronically signed by: Jone Gonzales M.D. 11/08/2017 11:39 AM Dictated Date/Time: 11/08/2017 11:35 AM
[2017-11-08] MEDS ORDERED: MECLIZINE HCL 25 MG TAB PO PRN (14:15)
--- NOTE | 2017-11-08 14:23 | Hospitalist Progress Note ---
Hospitalist Progress Note Date of Service November 08, 2017. (Kalyn Byrne CRNP) Supervising Note Dr. Anna I performed a history and physical examination on the patient. I reviewed above note and agree with it. I discussed plan with APC and patient. During my face to face encounter with the patient, I answered all of the patient's questions. Alll neuro images are negative. symptoms likely from inner ear. May have BPPV. (Zana Anna M.D.) Subjective Pt evaluation today including: conversation w/ patient, physical exam, chart review, lab review, review of inpatient medication list Voiding: no voiding problems Mr. Recinos continues to be dizzy without his symptoms getting better or worse since admission. He has not had any visual changes ROS Constitutional: no chills, aches, sweats or fever Respiratory: no sob,cough, sputum, or wheezing Cardiac: no chest pain, palpitations, edema, orthopnea or lightheadedness GI: no abdominal pain, nausea, vomiting, diarrhea or constipation : no dysuria or hesitancy Extremities: no joint pain or weakness Skin: no rash All other systems reviewed and negative (Kalyn Byrne CRNP) Medications Medications Administered Medications (Trade) Dose Ordered Sig/Francisco Route Start Time Stop Time Status Last Admin Dose Admin Sodium Chloride 1,000 ml @ 50 mls/hr Q20H IV 11/07/17 14:06 11/08/17 11:58 DC 11/08/17 10:31 50 MLS/HR Thiamine HCl (Vitamin B-1 Inj) 100 mg NOW STAT IV 11/07/17 14:06 11/07/17 14:08 DC 11/07/17 15:05 100 MG Aspirin (Aspirin Chew) 324 mg NOW STAT PO 11/07/17 15:26 11/07/17 15:27 DC 11/07/17 15:37 324 MG Pantoprazole Sodium (Protonix Tab) 40 mg NOW STAT PO 11/07/17 15:26 11/07/17 15:27 DC 11/07/17 15:37 40 MG Aspirin (Ecotrin Tab) 81 mg QAM PO 11/08/17 09:00 12/08/17 08:59 11/08/17 08:02 81 MG Sodium Chloride 1,000 ml @ 80 mls/hr [id number] IV 11/07/17 19:30 12/07/17 19:29 11/08/17 08:00 80 MLS/HR Thiamine HCl (Vitamin B-1 Tab) 100 mg QAM PO 11/08/17 09:00 12/08/17 08:59 11/08/17 08:02 100 MG Folic Acid (Folvite Tab) 400 mcg QAM PO 11/08/17 09:00 12/08/17 08:59 11/08/17 08:02 400 MCG Multivitamins/ Minerals (Multivitamin W/ Minerals Tab) 1 tab QAM PO 11/08/17 09:00 12/08/17 08:59 11/08/17 08:02 1 TAB (Kalyn Byrne CRNP) Objective Vital Signs Date Time Temp Pulse Resp B/P (MAP) Pulse Ox O2 Delivery O2 Flow Rate FiO2 11/08/17 12:00 96 Room Air 11/08/17 08:00 96 Room Air 11/08/17 07:10 36.8 55 18 114/74 (87) 96 11/08/17 04:20 36.7 56 16 113/70 (84) 96 Room Air 11/08/17 04:00 Room Air 11/08/17 00:00 Room Air 11/07/17 23:35 36.4 51 16 123/69 (87) 96 Room Air 11/07/17 21:15 94 Room Air 11/07/17 19:54 36.7 58 18 130/78 (95) 97 Room Air 11/07/17 19:18 99 Room Air 11/07/17 18:24 62 18 131/74 99 Room Air 11/07/17 17:36 63 21 137/81 97 Room Air 11/07/17 17:06 57 20 144/76 98 Room Air 11/07/17 16:36 63 22 156/80 96 Room Air 11/07/17 16:03 62 19 134/82 100 Room Air 11/07/17 15:30 72 15 143/74 98 Room Air 11/07/17 15:00 68 22 146/83 99 Room Air 11/07/17 14:43 62 16 137/82 99 Room Air 11/07/17 14:31 72 20 148/82 99 Room Air 11/07/17 14:09 74 5/21/18 14:07 Room Air 11/07/17 14:01 36.4 77 16 152/83 99 Room Air (Kalyn Byrne CRNP) Physical Exam Notes: General: no distress Eyes: normal inspection, PERLL Respiratory: chest non tender, clear to auscultation, normal breath sounds, no respiratory distress, no accessory muscle use Cardiac: regular rate and rhythm, no rub or gallop, no murmur, no edema, no jvd GI/: active bowel sounds, no abd pain or tenderness, soft, non distended Extremities: normal range of motion, normal strength, non tender Neuro/Psych: alert and oriented x 3, normal mood and affect Skin: normal color, dry (Kalyn Byrne CRNP) Laboratory Results Last 24 Hours Test 11/07/17 14:20 11/07/17 14:24 11/07/17 14:27 11/07/17 14:28 White Blood Count 5.96 K/uL Red Blood Count 4.33 M/uL Hemoglobin 13.8 g/dL Hematocrit 39.7 % Mean Corpuscular Volume 91.7 fL Mean Corpuscular Hemoglobin 31.9 pg Mean Corpuscular Hemoglobin Concent 34.8 g/dl Platelet Count 216 K/uL Mean Platelet Volume 10.1 fL Neutrophils (%) (Auto) 64.0 % Lymphocytes (%) (Auto) 24.8 % Monocytes (%) (Auto) 9.4 % Eosinophils (%) (Auto) 1.3 % Basophils (%) (Auto) 0.3 % Neutrophils # (Auto) 3.81 K/uL Lymphocytes # (Auto) 1.48 K/uL Monocytes # (Auto) 0.56 K/uL Eosinophils # (Auto) 0.08 K/uL Basophils # (Auto) 0.02 K/uL RDW Standard Deviation 40.6 fL RDW Coefficient of Variation 12.0 % Immature Granulocyte % (Auto) 0.2 % Immature Granulocyte # (Auto) 0.01 K/uL Prothrombin Time 10.0 SECONDS Prothromb Time International Ratio 1.0 Activated Partial Thromboplast Time 26.8 SECONDS Partial Thromboplastin Ratio 1.0 Sodium Level 141 mmol/L Potassium Level 3.9 mmol/L Chloride Level 109 mmol/L Carbon Dioxide Level 25 mmol/L Anion Gap 7.0 mmol/L 18.0 mmol/L Blood Urea Nitrogen 20 mg/dl Creatinine 1.07 mg/dl Est Creatinine Clear Calc Drug Dose 80.8 ml/min Estimated GFR () 85.8 Estimated GFR (Non- 74.0 BUN/Creatinine Ratio 18.4 Random Glucose 93 mg/dl Estimated Average Glucose 108 mg/dl Hemoglobin A1c 5.4 % Calcium Level 8.4 mg/dl Magnesium Level 2.0 mg/dl Total Bilirubin 0.2 mg/dl Direct Bilirubin < 0.1 mg/dl Aspartate Amino Transf (AST/SGOT) 17 U/L Alanine Aminotransferase (ALT/SGPT) 31 U/L Alkaline Phosphatase 70 U/L Total Creatine Kinase 171 U/L Creatine Kinase MB 2.7 ng/ml Creatine Kinase MB Ratio 1.6 Troponin I < 0.015 ng/ml Total Protein 7.6 gm/dl Albumin 3.5 gm/dl Ethyl Alcohol mg/dL < 3.0 mg/dl Hepatitis C Antibody Screen NEG Bedside Prothrombin Time INR 1.0 Bedside Hemoglobin 13.3 g/dl Bedside Hematocrit 39 % Bedside Sodium 144 mEq/L Bedside Potassium 4.1 mEq/L Bedside Chloride 105 mEq/L Bedside Total CO2 26 mEq/l Bedside Blood Urea Nitrogen 22 mg/dl Bedside Creatinine 1.1 mg/dl Bedside Glucose (other) 96 mg/dl Bedside Ionized Calcium (Emily) 1.16 mmol/l Bedside Glucose 89 mg/dl Test 11/07/17 16:15 11/07/17 20:37 11/07/17 22:20 11/08/17 06:08 Urine Color YELLOW Urine Appearance CLEAR Urine pH 5.5 Urine Specific [place] 1.021 Urine Protein NEG Urine Glucose (UA) NEG Urine Ketones NEG Urine Occult Blood NEG Urine Nitrite NEG Urine Bilirubin NEG Urine Urobilinogen NEG Urine Leukocyte Esterase NEG Urine Opiates Screen NEG Urine Methadone, Qualitative NEG Urine Barbiturates NEG Urine Phencyclidine (PCP) Level NEG Ur Amphetamine/Methamphetamine NEG MDMA (Ecstasy) Screen NEG Urine Benzodiazepines Screen NEG Urine Cocaine Metabolite NEG Urine Marijuana (THC) POS Bedside Glucose 81 mg/dl Troponin I < 0.015 ng/ml < 0.015 ng/ml White Blood Count 4.79 K/uL Red Blood Count 4.06 M/uL Hemoglobin 12.9 g/dL Hematocrit 37.1 % Mean Corpuscular Volume 91.4 fL Mean Corpuscular Hemoglobin 31.8 pg Mean Corpuscular Hemoglobin Concent 34.8 g/dl Platelet Count 185 K/uL Mean Platelet Volume 10.0 fL Neutrophils (%) (Auto) 69.9 % Lymphocytes (%) (Auto) 20.3 % Monocytes (%) (Auto) 7.7 % Eosinophils (%) (Auto) 1.5 % Basophils (%) (Auto) 0.4 % Neutrophils # (Auto) 3.35 K/uL Lymphocytes # (Auto) 0.97 K/uL Monocytes # (Auto) 0.37 K/uL Eosinophils # (Auto) 0.07 K/uL Basophils # (Auto) 0.02 K/uL RDW Standard Deviation 40.2 fL RDW Coefficient of Variation 12.0 % Immature Granulocyte % (Auto) 0.2 % Immature Granulocyte # (Auto) 0.01 K/uL Sodium Level 141 mmol/L Potassium Level 4.1 mmol/L Chloride Level 109 mmol/L Carbon Dioxide Level 26 mmol/L Anion Gap 6.0 mmol/L Blood Urea Nitrogen 17 mg/dl Creatinine 0.95 mg/dl Est Creatinine Clear Calc Drug Dose 90.2 ml/min Estimated GFR () 99.0 Estimated GFR (Non- 85.4 BUN/Creatinine Ratio 17.5 Random Glucose 84 mg/dl Uric Acid 6.3 mg/dl Calcium Level 8.1 mg/dl Triglycerides Level 118 mg/dl Cholesterol Level 130 mg/dl HDL Cholesterol 33 mg/dl LDL Cholesterol, Calculated 73 mg/dl VLDL Cholesterol, Calculated 24 mg/dl Cholesterol/HDL Ratio 3.9 Folate 11.58 ng/mL (Kalyn Byrne ., [place]) Assessment and Plan This is a 62 yo M with Hx of elevated bilirubin, chronic alcohol abuse, basal cell carcinoma, gout. Possible TIA/ Stroke R/o - neuro consulted - CT head. CTA head/neck, MRI all negative for acute process - Echo pending, troponins negative x 3 - Lipids, A1c normal -Neuro did not recommend starting platelet therapy given lack of evidence for stroke process Dizziness - PT/OT - will try meclizine Chronic Alcohol Abuse - Thiamine, folic acid levels wnl - continue supplementation - Ativan prn for withdrawal if necessary, last drink was two days ago - Cessation encouraged especially in the setting of gout flare - INR = 1.0 - etoh negative Marijuana Use - Admits to last use being 3 days ago. Tox screen negative for other drugs Gout - Check uric acid level - has been using 800 mg ibuprofen BID at home x 1 week. Hold for now as pt reports sx are essentially resolved. - Pt was counselled that high dose nsaids increase risk of GI bleed with his heavy alcohol consumption. Hx elevated bilirubin - LFTs wnl DVT ppx: SCDs CODE: FULL CODE Dispo: PT/OT recommending rehab if patient's balance does not improve - will re- evaluate tomorrow (Kalyn Byrne ., [place])
--- NOTE | 2017-11-08 16:20 | ECHOCARDIOGRAM REPORT ---
*NOTICE TO RECEIVING [employer] This information is strictly Confidential and protected under [place] law. [place] law prohibits you from making any further disclosure of this information unless further disclosure is expressly permitted by the written consent of the person to whom it pertains or is authorized by law. A general authorization for the release of medical or other information is not sufficient for this purpose. Hospital accepts no responsibility if the information is made available to any other person, INCLUDING THE PATIENT. Interpretation Summary * Name: OTIS PERRY Study Date: 11/08/2017 07:07 AM BP: 114/74 mmHg * Patient Location: [facility]\S\N285\S\2 HR: 55 * : 1955 (M/d/yyyy) Gender: Male Height: 70 in * Age: 62 yrs Ethnicity: [place] Weight: 198 lb * Ordering Physician: Katalina Lara * Referring Physician: Self, Referred * Performed By: Nilda Dennis RDCS * * Reason For Study: TIA/Stroke * BSA: 2.1 m2 * No cardiac source of emboli noted. * -- Conclusions -- * Left ventricular systolic function is normal. * Diastolic dysfunction, Grade II (pseudonormalization pattern). * Injection of contrast documented no interatrial shunt. Procedure Details * A complete two-dimensional transthoracic echocardiogram was performed (2D, M-mode, Doppler and color flow Doppler). * A saline contrast injection was performed to assess for cardiac shunting. * The injection was performed through an intravenous line in the right arm. * The attending nurse who injected the saline contrast was Charley Carpenter RN. * A total of 20 cc of agitated saline was given. Left Ventricle * The left ventricle is normal in size. * There is normal left ventricular wall thickness. * Ejection Fraction = 60-65%. * Left ventricular systolic function is normal. * Diastolic dysfunction, Grade II (pseudonormalization pattern). * The left ventricular wall motion is normal. Right Ventricle * The right ventricle is normal in size and function. * The right ventricular systolic function is normal as assessed by tricuspid annular plane systolic excursion (TAPSE) (normal >1.5 cm). Atria * The left atrial size is normal. * Right atrial size is normal. * Injection of contrast documented no interatrial shunt. Mitral Valve * The mitral valve is grossly normal. * Significant mitral regurgitation is absent. Tricuspid Valve * The tricuspid valve is not well visualized, but is grossly normal. * Significant tricuspid regurgitation is absent. Aortic Valve * The aortic valve is normal in structure and function. * The aortic valve is trileaflet. * No hemodynamically significant valvular aortic stenosis. * There is no significant aortic regurgitation. Pulmonic Valve * The pulmonic valve is not well visualized. Pericardium/Pleural * There is no pericardial effusion. MMode 2D Measurements and Calculations IVSd 1.1 cm IVSs 1.1 cm LVIDd 3.5 cm LVIDs 2.4 cm LVPWd 1.1 cm LVPWs 1.8 cm IVS/LVPW 0.93 FS 30.5 % EDV(Teich) 51.4 ml ESV(Teich) 21.1 ml EF(Teich) 59.0 % EDV(cubed) 43.4 ml ESV(cubed) 14.6 ml EF(cubed) 66.4 % % IVS thick 4.6 % % LVPW thick 56.4 % LV mass(C)d 119.7 grams LV mass(C)dI 57.6 grams/m\S\2 LV mass(C)s 114.7 grams LV mass(C)sI 55.2 grams/m\S\2 SV(Teich) 30.3 ml SI(Teich) 14.6 ml/m\S\2 SV(cubed) 28.8 ml SI(cubed) 13.9 ml/m\S\2 Ao root diam 3.0 cm Ao root area 7.1 cm\S\2 ACS 2.2 cm LA dimension 3.3 cm LA/Ao 1.1 LVAd ap4 29.7 cm\S\2 LVLd ap4 8.6 cm EDV(MOD-sp4) 84.9 ml EDV(sp4-el) 87.0 ml LVAs ap4 13.9 cm\S\2 LVLs ap4 6.3 cm ESV(MOD-sp4) 26.5 ml ESV(sp4-el) 26.1 ml EF(MOD-sp4) 68.8 % EF(sp4-el) 70.0 % LVAd ap2 29.7 cm\S\2 LVLd ap2 8.7 cm EDV(MOD-sp2) 89.2 ml EDV(sp2-el) 86.1 ml LVAs ap2 14.5 cm\S\2 LVLs ap2 7.0 cm ESV(MOD-sp2) 28.5 ml ESV(sp2-el) 25.4 ml EF(MOD-sp2) 68.0 % EF(sp2-el) 70.5 % LVLd %diff 1.2 % EDV(MOD-bp) 86.4 ml LVLs %diff 9.7 % ESV(MOD-bp) 28.4 ml EF(MOD-bp) 67.1 % SV(MOD-sp4) 58.4 ml SI(MOD-sp4) 28.1 ml/m\S\2 SV(MOD-sp2) 60.6 ml SI(MOD-sp2) 29.2 ml/m\S\2 SV(MOD-bp) 57.9 ml SI(MOD-bp) 27.9 ml/m\S\2 SV(sp4-el) 60.9 ml SI(sp4-el) 29.3 ml/m\S\2 SV(sp2-el) 60.7 ml SI(sp2-el) 29.2 ml/m\S\2 Doppler Measurements and Calculations MV E max kriss 103.0 cm/sec MV A max kriss 85.7 cm/sec MV E/A 1.2 MV dec time 0.28 sec Ao V2 max 127.7 cm/sec Ao max PG 6.5 mmHg Ao max PG (full) 0.18 mmHg LV V1 max PG 6.3 mmHg LV V1 max 125.9 cm/sec PA V2 max 94.9 cm/sec PA max PG 3.6 mmHg
[2017-11-09 04:35] VITALS: BP 112/74; PULSE 59; TEMP 36.6; O2SAT 93
[2017-11-09 06:50] LABS: BASO % 0.3 %; BASO ABS # 0.02 K/uL (0-0.2); EOS % 1.8 %; EOS ABS # 0.11 K/uL (0-0.5); HEMATOCRIT 38.5 % (42-52); HEMOGLOBIN 13.2 g/dL (14.0-18.0); IG# 0.01 K/uL (0.00-0.02); LYMPH % 19.4 %; LYMPH ABS # 1.17 K/uL (1.2-3.4); MEAN CELL VOLUME 92.5 fL (80-100); MEAN CORPUSCULAR HEMOGLOBIN 31.7 pg (25-34); MEAN CORPUSCULAR HGB CONC 34.3 g/dl (32-36); MEAN PLATELET VOLUME 10.6 fL (7.4-10.4); MONO % 7.6 %; MONO ABS # 0.46 K/uL (0.11-0.59); NEUT % 70.7 %; NEUT ABS # 4.25 K/uL (1.4-6.5); PLATELET COUNT 202 K/uL (130-400); RED CELL DISTRIBUTION WIDTH SD 40.5 fL (36.4-46.3); WHITE BLOOD COUNT 6.02 K/uL (4.8-10.8)
[2017-11-09 07:15] VITALS: BP 113/72; PULSE 56; TEMP 36.4; O2SAT 94
[2017-11-09 07:18] LABS: CALCIUM 7.9 mg/dl (8.5-10.1); CREATININE 1.03 mg/dl (0.60-1.40); POTASSIUM 4.1 mmol/L (3.5-5.1)
[2017-11-09] MEDS: SODIUM CHLORIDE 0.9% 1000ML 1,000 ML IV SCH (07:49)
[2017-11-09] MEDS: FoLIC ACID TAB 400 MCG TAB PO SCH (07:50)
[2017-11-09] MEDS: CEROVITE ADV FORMULA TAB PO SCH (07:50)
[2017-11-09] MEDS: THIAMINE HCL 100 MG TAB PO SCH (07:50)
[2017-11-09 08:00] VITALS: O2SAT 96
--- NOTE | 2017-11-09 09:26 | Neurology Progress Notes ---
Neurology Progress Note Date of Service November 09, 2017. Subjective Patient feels back to baseline with no dizziness, vision problems, balance issues, weakness, numbness, headache, or pain. He is not shaky year diaphoretic Nursing reports no new issues overnight, and there is no sign of withdrawal Echocardiogram was unremarkable with no shot MRI of the brain showed no acute stroke. There were 1 or 2 tiny white matter spots of a nonspecific nature but otherwise or no other abnormalities. CBC and Chem profile were unremarkable although he has a mildly low calcium. Objective Date Time Temp Pulse Resp B/P (MAP) Pulse Ox O2 Delivery O2 Flow Rate FiO2 11/09/17 07:15 36.4 56 18 113/72 (86) 94 11/09/17 04:35 36.6 59 18 112/74 (87) 93 Room Air 11/09/17 04:00 Room Air 11/09/17 00:00 Room Air 11/08/17 23:24 36.8 59 20 116/70 (85) 94 Room Air 11/08/17 20:19 36.6 57 20 119/76 (90) 95 Room Air 11/08/17 20:00 95 Room Air 11/08/17 16:00 95 Room Air 11/08/17 15:21 36.6 64 16 136/74 (94) 95 Room Air 11/08/17 12:00 96 Room Air Last 24 Hours Test 11/08/17 13:45 11/09/17 06:17 Urine Opiates Screen NEG Urine Methadone, Qualitative NEG Urine Barbiturates NEG Urine Phencyclidine (PCP) Level NEG Ur Amphetamine/Methamphetamine NEG MDMA (Ecstasy) Screen NEG Urine Benzodiazepines Screen NEG Urine Cocaine Metabolite NEG Urine Marijuana (THC) NEG White Blood Count 6.02 K/uL Red Blood Count 4.16 M/uL Hemoglobin 13.2 g/dL Hematocrit 38.5 % Mean Corpuscular Volume 92.5 fL Mean Corpuscular Hemoglobin 31.7 pg Mean Corpuscular Hemoglobin Concent 34.3 g/dl Platelet Count 202 K/uL Mean Platelet Volume 10.6 fL Neutrophils (%) (Auto) 70.7 % Lymphocytes (%) (Auto) 19.4 % Monocytes (%) (Auto) 7.6 % Eosinophils (%) (Auto) 1.8 % Basophils (%) (Auto) 0.3 % Neutrophils # (Auto) 4.25 K/uL Lymphocytes # (Auto) 1.17 K/uL Monocytes # (Auto) 0.46 K/uL Eosinophils # (Auto) 0.11 K/uL Basophils # (Auto) 0.02 K/uL RDW Standard Deviation 40.5 fL RDW Coefficient of Variation 12.0 % Immature Granulocyte % (Auto) 0.2 % Immature Granulocyte # (Auto) 0.01 K/uL Sodium Level 141 mmol/L Potassium Level 4.1 mmol/L Chloride Level 110 mmol/L Carbon Dioxide Level 25 mmol/L Anion Gap 6.0 mmol/L Blood Urea Nitrogen 15 mg/dl Creatinine 1.03 mg/dl Est Creatinine Clear Calc Drug Dose 83.0 ml/min Estimated GFR () 89.8 Estimated GFR (Non- 77.5 BUN/Creatinine Ratio 14.8 Random Glucose 92 mg/dl Calcium Level 7.9 mg/dl Imaging: MRI OF THE BRAIN WITHOUT IV CONTRAST CLINICAL HISTORY: Transient ischemic attack. Weakness. COMPARISON STUDY: CT of the brain dated 11/07/2017. TECHNIQUE: MRI of the brain was performed utilizing various T1 and T2-weighted sequences in the axial, sagittal, and coronal planes. IV contrast was not administered for this examination. FINDINGS: Brain parenchyma: There is minimal subcortical and periventricular microangiopathic disease. There is no hemorrhage or mass effect. There is no restricted diffusion to suggest acute ischemia. Peña-white matter differentiation is preserved. No extra-axial fluid collection is seen. The cerebellar tonsils are normal in configuration. Ventricles, sulci, and cisterns: Normal in configuration. Pituitary and sella: Unremarkable. Intracranial vasculature: Normal flow voids are maintained at the skull base. Orbits: There has been remote fracture of the left lamina papyracea. The bony orbits are otherwise grossly intact. Orbital contents are normal in appearance noting bilateral ocular lens implants. Sinuses and mastoids: A 13 mm retention cyst is seen in the right maxillary antrum. Trace mucosal thickening is noted in the maxillary sinuses. The remaining paranasal sinuses and the mastoid air cells are clear. Calvarium: Unremarkable. Cervical cord: Partially visualized cervical spinal cord is normal in morphology and signal intensity. IMPRESSION: No acute intracranial abnormality. Electronically signed by: Jone Gonzales M.D. 11/08/2017 11:39 AM Exam: He is awake and alert. Speech is normal without aphasia or dysarthria. Mood is normal and affect is appropriate. He is pleasant and calm. He is not anxious, diaphoretic, or shaky. Pulse is in the 60s. Extraocular eye muscles are intact without nystagmus. There is no facial droop. Tongue is midline. Coordination is normal in the arms with no ataxia. Strength is symmetrical in the limbs. Current Inpatient Medications Medications (Trade) Dose Ordered Sig/Francisco Route Start Time Stop Time Status Last Admin Dose Admin Ioversol (Optiray 320) 100 ml UD PRN IV 11/07/17 15:30 11/11/17 15:29 Miscellaneous Information (Pharmacist Discharge Med Rec Consult) 1 ea UD PRN N/A 11/07/17 16:30 12/07/17 16:29 Sodium Chloride 1,000 ml @ 80 mls/hr [id number] IV 11/07/17 19:30 12/07/17 19:29 11/09/17 07:49 80 MLS/HR Acetaminophen (Tylenol Tab) 650 mg Q4H PRN PO 11/07/17 16:30 12/07/17 16:29 Magnesium Hydroxide (Milk Of Magnesia Susp) 30 ml Q12H PRN PO 11/07/17 16:30 12/07/17 16:29 Ondansetron HCl (Zofran Inj) 4 mg Q6H PRN IV 11/07/17 16:30 12/07/17 16:29 Polyethylene (Miralax Powder Packet) 17 gm DAILY PRN PO 11/07/17 16:30 12/07/17 16:29 Thiamine HCl (Vitamin B-1 Tab) 100 mg QAM PO 11/08/17 09:00 12/08/17 08:59 11/09/17 07:50 100 MG Folic Acid (Folvite Tab) 400 mcg QAM PO 11/08/17 09:00 12/08/17 08:59 11/09/17 07:50 400 MCG Multivitamins/ Minerals (Multivitamin W/ Minerals Tab) 1 tab QAM PO 11/08/17 09:00 12/08/17 08:59 11/09/17 07:50 1 TAB Lorazepam (Ativan Inj) 0.5 mg Q2HWA PRN IV 11/07/17 16:30 12/07/17 16:29 Lorazepam 0.5 mg/ Syringe 1 ml @ 1 mls/min Q2HWA PRN IV 11/07/17 17:15 12/07/17 17:14 Meclizine HCl (Antivert Tab) 25 mg TID PRN PO 11/08/17 14:15 12/08/17 14:14 Impression 1. Acute onset dizziness, more consistent with a vertiginous like feeling then a lightheadedness, now resolved. On examination there are no focal neurologic findings, meningeal signs, or encephalopathy. MRI of the brain showed no evidence of stroke This was likely an inner ear problem He has no overt risk factors for stroke including no history of hypertension, diabetes, cigarette smoking, or dyslipidemia. 2. History of longstanding and heavy alcohol use. I am concerned about alcohol withdrawal in this patient, although he shows no overt signs of withdrawal so far. Plan 1. I see no need for additional neurologic testing or treatment at this time. 2. Follow-up with his primary care physician. There is no indication for neurologic follow-up at this time. I spoke with Kalyn Byrne PA-C regarding this case including differential diagnosis and treatment options. I spent a total of 25 minutes with this case including records review, direct evaluation the patient, and discussion of differential diagnosis and treatment options with the patient and caretakers
[2017-11-09] MEDS ORDERED: ANT25 PO (11:20)
[2017-11-09] MEDS ORDERED: FLV400 PO (11:20)
[2017-11-09] MEDS ORDERED: THM100 PO (11:20)
--- NOTE | 2017-11-09 11:24 | Discharge Instructions ---
Discharge Instructions Date of Service November 09, 2017. Admission Reason for Admission: Tia (Transient Ischemic Attack) Discharge Discharge Diagnosis / Problem: Vertigo Discharge Goals Goal(s): Improve disease control Activity Recommendations Activity Limitations: resume your previous activity Exercise/Sports Limitations: gradually increase as tolerated . Instructions / Follow-Up Instructions / Follow-Up You should not drive if you have any further vertigo symptoms. I have given you a prescription for meclizine which you can use if you have symptoms of dizziness again. Please follow up with your primary care provider within about a week Current Hospital Diet Patient's current hospital diet: AHA Diet (Heart Healthy) Discharge Diet Recommended Diet: AHA Diet (Heart Healthy) Procedures Procedures Performed: Brain MRI CT angiography Head CT CXR Pending Studies Studies pending at discharge: no Laboratory Results Hemoglobin A1c Test 11/07/17 14:20 Range/Units Estimated Average Glucose 108 mg/dl Hemoglobin A1c 5.4 4.5-5.6 % Lipid Panel Test 11/08/17 06:08 Range/Units Triglycerides Level 118 0-150 mg/dl Cholesterol Level 130 0-200 mg/dl HDL Cholesterol 33 mg/dl Cholesterol/HDL Ratio 3.9 LDL Cholesterol, Calculated 73 mg/dl Medical Emergencies . Who to Call and When: Medical Emergencies: If at any time you feel your situation is an emergency, please call 911 immediately. . Non-Emergent Contact Non-Emergency issues call your: Primary Care Provider . . "Provider Documentation" section prepared by Kalyn Byrne. .
--- NOTE | 2017-11-09 11:35 | Discharge Summary ---
Discharge Summary Date of Service November 09, 2017. Discharge Summary Admission Date: November 07, 2017 at 16:49 Discharge Date: November 09, 2017 Discharge Disposition: Home Principal Diagnosis: Vertigo Problems/Secondary Diagnoses: chronic alcohol abuse, Marijuana Use, Gout, Hx elevated bilirubin Procedures: MRI OF THE BRAIN WITHOUT IV CONTRAST CLINICAL HISTORY: Transient ischemic attack. Weakness. COMPARISON STUDY: CT of the brain dated 11/07/2017. TECHNIQUE: MRI of the brain was performed utilizing various T1 and T2-weighted sequences in the axial, sagittal, and coronal planes. IV contrast was not administered for this examination. FINDINGS: Brain parenchyma: There is minimal subcortical and periventricular microangiopathic disease. There is no hemorrhage or mass effect. There is no restricted diffusion to suggest acute ischemia. Peña-white matter differentiation is preserved. No extra-axial fluid collection is seen. The cerebellar tonsils are normal in configuration. Ventricles, sulci, and cisterns: Normal in configuration. Pituitary and sella: Unremarkable. Intracranial vasculature: Normal flow voids are maintained at the skull base. Orbits: There has been remote fracture of the left lamina papyracea. The bony orbits are otherwise grossly intact. Orbital contents are normal in appearance noting bilateral ocular lens implants. Sinuses and mastoids: A 13 mm retention cyst is seen in the right maxillary antrum. Trace mucosal thickening is noted in the maxillary sinuses. The remaining paranasal sinuses and the mastoid air cells are clear. Calvarium: Unremarkable. Cervical cord: Partially visualized cervical spinal cord is normal in morphology and signal intensity. IMPRESSION: No acute intracranial abnormality. Electronically signed by: Jone Gonzlaes M.D. 11/08/2017 11:39 AM [~ rep ct add3]] HEAD ANGIO WITH CONTRAST HISTORY: 62 years-old Male presents with acute strokelike symptoms, dizziness and weakness COMPARISON: CTA neck of same day, CT head 11/07/2017 TECHNIQUE: CTA of the head is obtained following the intravenous administration of 119 mL Optiray 320 IV contrast. 3-D coronal and sagittal MIPS were obtained from the axial data set and were submitted for review. All measurements were obtained according to NASCET criteria. A dose lowering technique was used consistent with the principals of NICOLE. FINDINGS: The imaged bilateral internal carotid arteries are widely patent. There is minimal atherosclerotic plaquing noted involving the cavernous, clinoid and supraclinoid segments without significant stenosis. Bilateral ophthalmic branches appear normal. The middle and left anterior cerebral arteries appear patent and within normal limits. The right A1 segment is not well seen and is likely developmentally diminutive in size. The bilateral A2 segments appear to be unremarkable and patent. V4 segments of the vertebral arteries are patent and unremarkable. The basilar artery is within normal limits. origin of the right posterior cerebral artery. Bilateral posterior cerebral arteries appear to be widely patent. The cerebral venous sinuses are patent and unremarkable. Soft tissues and orbits are within normal limits. No skull fracture. Mastoid air cells are clear. Mild mucosal thickening of the maxillary sinuses with polypoid mucosal disease about the right maxillary sinus. IMPRESSION: 1. Right A1 segment is not visualized, likely developmentally diminutive in size with the left A1 segment and bilateral A2 segments widely patent. 2. Incidental note is made of origin of the right posterior cerebral artery. 3. No aneurysm or dissection identified. The above report was generated using voice recognition software. It may contain grammatical, syntax or spelling errors. Electronically signed by: Chance Sandhu M.D. 11/07/2017 4:10 PM [~ rep ct add3]] CT ANGIOGRAPHY OF THE NECK WITH CONTRAST CLINICAL HISTORY: Dizziness. Weakness. Stroke alert. COMPARISON STUDY: No previous studies for comparison. Technique: CT angiography of the carotid and vertebral arteries was obtained using Optiray 320 IV and 3D reconstruction on an independent workstation. NASCET criteria was utilized. A dose lowering technique was utilized adhering to the principles of ALARA. Findings: Please note that the CTA of the head will be reported separately. The left vertebral artery arises from the aortic arch. There is mild plaque at the origin of the right vertebral artery without significant stenosis. The bilateral vertebral arteries are patent. The right vertebral artery is dominant. There is mild plaque within the bilateral internal carotid arteries without significant stenosis. There is no dissection within the major vasculature of the neck. No cervical lymphadenopathy is noted. Incidental note is made of numerous calcified mediastinal lymph nodes. Lung apices are clear. No suspicious osseous lesions are present. No mucosal lesion is identified. IMPRESSION: No significant stenosis within the major vessels of the neck. No dissection. Electronically signed by: Ajith Roberts M.D. 11/07/2017 4:12 PM CHEST ONE VIEW PORTABLE CLINICAL HISTORY: Stroke COMPARISON STUDY: Chest radiograph and chest CT September 09, 2012. FINDINGS: Incidental note is made of numerous calcified mediastinal and bilateral hilar lymph nodes. Cardiomediastinal silhouette is unremarkable. There are healed bilateral rib fractures. No pneumothorax or pleural effusion is noted. No consolidation or evidence for pulmonary edema. IMPRESSION: No acute cardiopulmonary findings. Electronically signed by: Ajith Roberts M.D. 11/07/2017 2:33 PM HEAD WITHOUT CONTRAST (CT) CLINICAL HISTORY: 62 years-old Male presenting with Stroke, dizziness, inability to stand. TECHNIQUE: Multidetector CT imaging of the head was performed without the use of intravenous contrast. IV contrast: None. A dose lowering technique was used consistent with the principles of ALARA (as low as reasonably achievable). COMPARISON: None. CT DOSE (mGy.cm): The estimated cumulative dose is 638.56 mGycm. FINDINGS: Cash Applications Representative topogram: Unremarkable. Ventricles and sulci normal in size. Brain parenchyma normal in appearance with preserved peña-white differentiation. No mass effect or midline shift. No hemorrhage or acute territorial infarct. No extra-axial fluid collection. Paranasal sinuses and mastoid air cells clear. Calvarium intact. IMPRESSION: 1. No acute intracranial abnormality. Electronically signed by: Alcides Corado M.D. 11/07/2017 2:16 PM Consultations: Dr. Lyles from neurology Medication Reconciliation New Medications: Folic Acid (Folic Acid) 400 Mcg Tab 400 MCG PO QAM for 30 Days, #30 TAB Meclizine HCl (Meclizine HCl) 25 Mg Tab 25 MG PO TID PRN for dizziness for 30 Days, #90 TAB Thiamine HCl (Vitamin B-1) 100 Mg Tab 100 MG PO QAM for 30 Days, #30 TAB Continued Medications: Fluorouracil (Topical) (Efudex) 5 % Cre 1 APPLN TOP BID PRN for dermititis for 14 Days, #40 GM Ibuprofen (Advil) 200 Mg Tab 800 MG PO PRN, TAB Discharge Exam ROS Constitutional: no chills, aches, sweats or fever Respiratory: no sob,cough, sputum, or wheezing Cardiac: no chest pain, palpitations, edema, orthopnea or lightheadedness GI: no abdominal pain, nausea, vomiting, diarrhea or constipation : no dysuria or hesitancy Extremities: no joint pain or weakness Skin: no rash All other systems reviewed and negative Asymptomatic today PE General: no distress Eyes: normal inspection, PERLL Respiratory: chest non tender, clear to auscultation, normal breath sounds, no respiratory distress, no accessory muscle use Cardiac: regular rate and rhythm, no rub or gallop, no murmur, no edema, no jvd GI/: active bowel sounds, no abd pain or tenderness, soft, non distended Extremities: normal range of motion, normal strength, non tender Neuro/Psych: alert and oriented x 3, normal mood and affect Skin: normal color, dry Hospital Course This is a 62 yo M with Hx of elevated bilirubin, chronic alcohol abuse, basal cell carcinoma, gout, who presents with weakness which began around 1 pm day of arrival. 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 Patient proceeded to drive 15 minutes with passengers, and noted worsening symptoms of dizziness. He denies any sort of visual deficits or changes, no motor weakness, no slurring speech. He continued to feel "not quite right" and then proceeded to come to the ER. The patient denies having any history of symptoms like this. He notes recently has been treating himself for a right great toe gout with 800 mg ibuprofen twice a day. He believes that his gout was exacerbated due to being on vacation recently and drinking 12 beers per day. Patient routinely drinks at least 4 beers daily as well as smokes marijuana several times per week. He denies taking any routine medications. Vertigo, R/o CVA - neuro consulted - CT head. CTA head/neck, MRI all negative for acute process - Echo pending, troponins negative x 3 - Lipids, A1c normal - Neuro did not recommend starting platelet therapy given lack of evidence for stroke process - PT/OT - much improved today from yesterday - meclizine - did drug and alcohol counsellor patient that he should not drive if he has ANY further dizziness symptoms Chronic Alcohol Abuse - Thiamine, folic acid levels wnl - continue supplementation - no s/s of withdrawal during his stay - Cessation encouraged especially in the setting of gout flare - INR = 1.0 - etoh negative on admission - primary care should continue to stress alcohol reduction in follow up Marijuana Use - Admits to last use being 3 days ago, reports that he uses only on his off time from work. Tox screen negative for other drugs Gout - Check uric acid level - has been using 800 mg ibuprofen BID at home x 1 week. Hold for now as pt reports sx are essentially resolved. - Pt was counselled that high dose nsaids increase risk of GI bleed with his heavy alcohol consumption. 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 He stressed that he only drinks on his time off, and only smokes marijuana a few days a week on his time off. His lack of blood alcohol in the ED, which he reported to from work would support this assertion. Total Time Spent: Greater than 30 minutes This includes examination of the patient, discharge planning, medication reconciliation, and communication with other providers. Discharge Instructions Please refer to the electronic Patient Visit Report (Discharge Instructions) for additional information.
[2017-11-09 11:39] VITALS: BP 131/76; PULSE 51; TEMP 36.7; O2SAT 95
[2017-11-09 11:51] VITALS: BP 131/76; PULSE 51; TEMP 36.7; O2SAT 95
== END 2017-11-09 12:55 | disposition home or self-care (01) | DRG 149 ==
LOC: C.EDB 14:00 → C.MED 16:49 → ENRESERV 18:29
PROVIDERS: ADMIT Internal Medicine; ATTEND Internal Medicine Sports Medicine
DX: R42 Dizziness and giddiness (principal); R47.1 Dysarthria and anarthria; R53.1 Weakness; R29.810 Facial weakness; M10.9 Gout, unspecified; F12.90 Cannabis use, unspecified, uncomplicated; F10.10 Alcohol abuse, uncomplicated